=== PATIENT | male | born 1955 | race Caucasian/White ===

== ENCOUNTER 2017-04-18 07:44 | Day surgery (SDC) | payer OTHER ==
--- NOTE | 2017-04-08 10:00 | HP ---
PREOPERATIVE HISTORY AND PHYSICAL: DATE OF SURGERY: 04/18/17 [facility] DATE OF OFFICE VISIT: 04/07/17 ATTENDING SURGEON: Krys Bowden MD * (dictated by JESÚS Georges) PROCEDURE: Right knee arthroscopic partial meniscectomy. CHIEF COMPLAINT: Right knee pain. HISTORY OF PRESENT ILLNESS: Mr. Sunshine is a 61-year-old male who presents to the clinic for followup of right knee pain due to a work-related injury that caused posterior medical meniscus tear. He has failed conservative measures to include injections, and has therefore agreed to undergo a right knee arthroscopic partial meniscectomy with Dr. Bowden on 04/18/17. PAST MEDICAL HISTORY: Denies current problems. PAST SURGICAL HISTORY: Appendectomy in 1984. MEDICATIONS: No active medications. ALLERGIES: No known drug allergies. FAMILY HISTORY: Positive for heart disease on his father's side, cancer on his father's side. Denies family history of DVT or PE. SOCIAL HISTORY: Lives with his spouse. 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 He is a former smoker; he quit suk-azz-p-half years ago. He reports occasional alcohol consumption. He denies illicit drug use. He is right-hand dominant. REVIEW OF SYSTEMS: General: Negative for fever, chills, or night sweats. No known anesthesia problems. HEENT: Negative for headache, lightheadedness, or syncopal episodes. Integumentary: Negative for abrasions, lesions, or open wounds. Cardiothoracic: Negative for chest pain, palpitations or edema. Negative for hypertension. Pulmonary: Negative for shortness of breath with exertion, chronic cough, or COPD. GI: Negative for nausea, vomiting, diarrhea , constipation, or GERD. : Negative for nocturia, urinary urgency, history of UTIs or kidney problems. Musculoskeletal: Positive for the current complaint. Neuro: Positive for numbness and tingling of the right foot. Denies history of seizure, stroke, or epilepsy. Endocrine: Negative for diabetes or thyroid issues. Heme: Negative for easy bruising, anemia, excessive bleeding, history of DVT or PE. Negative for history of bleeding disorder. Infectious Disease: Negative for history of MRSA, hep C, or HIV. PHYSICAL EXAMINATION VITAL SIGNS: Height 70, weight 200, pulse 82, blood pressure 142/90, respiratory rate 14, temperature 97.7, BMI 28.7. HEENT: Normocephalic, atraumatic. PERRLA. Throat: Clear. NECK: Supple. PULMONARY: Lungs are clear to auscultation bilaterally. No wheezing, rhonchi, or rales. CARDIO: Regular rate and rhythm. S1, S2. No murmurs, gallops or rubs. No edema. ABDOMEN: Positive bowel sounds, soft, and nontender. NEURO: Alert and oriented x3. Cranial nerves grossly intact. Sensation is intact to light touch. MUSCULOSKELETAL: Right lower extremity - skin is intact. No erythema. Mild effusion. Range of motion 0 to 120. Tenderness to palpation over the medial joint line. Stable to varus and valgus stress. 2A James. Negative posterior drawer. Calf soft and nontender. +2 dorsalis pedis pulses. Sensation intact to light touch distally. DIAGNOSTIC STUDIES: MRI of the right knee reveals posterior medial meniscus tear and partial ACL tear. IMPRESSION: Right knee posterior medial meniscus tear. PLAN/RECOMMENDATIONS: The patient is scheduled to undergo a right knee arthroscopy, partial meniscectomy with Dr. Bowden on 04/18/17. He will return to the office in 10 to 14 days postop for followup and suture removal. Percocet will be used for postop pain management. JESÚS GEORGES [id number]/[facility] [place] #: [id number] MTDD
[~2017-04-18 07:44] MED LIST: Buffered Lidocaine 0.9% SYRIN* 5 ML/SYR SYRINGE INTRADERM ONE; Dexamethasone IV* 4 MG/ML 1 ML (4 MG) IV SLOW PU ONE; Famotidine IV* 10 MG/ML 2 ML (20 mg) IV ONE
[2017-04-18] MEDS ORDERED: Dexamethasone IV* 4 MG/ML 1 ML (4 MG) ONE (07:47)
[2017-04-18] MEDS ORDERED: Famotidine IV* 10 MG/ML 2 ML (20 mg) ONE (07:47)
[2017-04-18] MEDS ORDERED: ceFAZolin 2 GM PREMIX (*) 50 ML IVPB ONE (08:06)
[2017-04-18] MEDS ORDERED: Lidocaine 2% PF * 5 ML VIAL ONE (09:27)
[2017-04-18] MEDS ORDERED: fentaNYL* 50 MCG/ML 2 ML VIAL (100 MCG VIAL) ONE ×3 (09:27→10:57)
[2017-04-18] MEDS ORDERED: Propofol* 10 MG/ML 20 ML BTL IV PUSH ONE (09:27)
[2017-04-18] MEDS ORDERED: Bupivacaine 0.25% SDV* 30 ML ONE (09:34)
[2017-04-18] MEDS ORDERED: Ketorolac INJ* 30 MG/ML 1 ML VIAL ONE (09:53)
[2017-04-18] MEDS ORDERED: PROCHLORPERAZINE INJ 5 MG/ML 2 ML VIAL IV PRN (10:05)
[2017-04-18] MEDS ORDERED: oxyCODONE/Acetamin 5/325 MG* TAB PO PRN (10:05)
[2017-04-18] MEDS ORDERED: Ondansetron INJ* 2 MG/ML VIAL ONE (10:24)
[2017-04-18] MEDS ORDERED: methylPREDNISolone ACETATE 80* 80 MG/ML 1 ML VIAL ONE (10:26)
[2017-04-18] MEDS: fentaNYL* 50 MCG/ML 2 ML VIAL (100 MCG VIAL) IV PRN ×2 (11:00→11:09)
[2017-04-18] MEDS ORDERED: oxyCODONE/Acetamin 5/325 MG* TAB ONE (11:16)
[2017-04-18 11:49] VITALS: BP 151/94
--- NOTE | 2017-04-23 12:16 | OP ---
DATE OF OPERATION: 04/18/17 [facility] DATE OF : 57 SURGEON: Krys Bowden MD ANESTHESIOLOGIST: Dr. Bertram Best. ANESTHESIA: General. PRE-OP DIAGNOSIS: Right knee medial meniscus tear with mild osteoarthritis. POST-OP DIAGNOSIS: Mild osteoarthritis, multiple loose bodies, medial and lateral meniscal tears as well as loose bodies numerous. OPERATIVE PROCEDURE: Right knee arthroscopy with: 1. Removal of loose bodies numerous. Partial medial meniscectomy. 2. Partial lateral meniscectomy. 3. Chondroplasty. 4. Intraarticular injection of 80 mg of Depo-Medrol. COMPLICATIONS: None. ESTIMATED BLOOD LOSS: Minimal. IMPLANTS: None. INDICATIONS: Ludwig Sunshine is a 61-year-old male who sustained a work-related injury in 2016. We have been treating him conservatively with injections, physical therapy. He also has a known partial tear of his ACL, but he had persistent medial catching and locking symptoms that have not resolved. Because of the mechanical symptoms, we elected to proceed with right knee arthroscopy with partial meniscectomy. He is aware that if he has some arthritis that this will not respond favorably to arthroscopy. Risks and benefits were discussed at length with the patient and include but are not limited to bleeding, infection, damage to nerves, vessels, surrounding structures, wound nonhealing, persistent pain, need for further surgeries, scarring, stiffness, incomplete relief of symptoms, risk of anesthesia, risk of DVT. He elected to proceed with surgery. DESCRIPTION OF PROCEDURE: The patient was greeted in the preoperative area by the attending surgeon. Correct extremity was marked and consent was confirmed. The patient was brought back to the operating suite and was placed in supine position on the operating table. He underwent general anesthesia with LMA intubation. An unsterile tourniquet was placed high in the proximal thigh. The lateral post was positioned. The leg was prepped and draped in the usual sterile fashion beginning with chlorhexidine soap, scrub, and alcohol wipe and a final prep of ChloraPrep. After appropriate surgical pause indicating side, site, procedure, and administration of antibiotics, an 18-gauge needle was used to inject the knee intra- articularly with sterile saline. An anterolateral portal was made using 11 blade. The scope was introduced into the joint. The joint was examined. The scope was placed into the suprapatellar pouch. There were multiple loose bodies and debris that was floating. There was grade 0 to 1 changes in the patella and grade 0 to 1 changes in the trochlea. The medial and lateral gutters both had erythema as well as multiple loose bodies. The knee was placed at 90 degrees. The anteromedial portal was made sharply in an outside- in fashion. The shaver was used to remove the loose bodies and loose tissue. The scope was positioned in the medial compartment. There was a small area of chondrosis with grade 1 and 2 changes of unstable flap, which was debrided back. Medial meniscus identified and had a parrot beak type tear with the head clipped into the gutter. This was then debrided back using arthroscopic biters and eryn. Once the meniscectomy had been completed, attention was directed to the ACL, which had partial thickness tearing. The knee was placed in figure- of-four position. The lateral compartment was identified. There were grade 0 to 1 changes of the femoral condyle and lateral tibial plateau. There was fraying of the lateral meniscus, which was debrided back using the shaver. At this point, attention was directed to suprapatellar pouch to try to make sure that any debris and loose bodies were removed. At least two of the loose bodies were greater than 5 mm. Once the surgery was complete, the knee was sterilely lavaged and every attempt was made to try to remove any loose bodies and debris. Small synovectomy was done anteriorly to remove plica and hemostasis was obtained at all times using electrocautery device. The portals were closed with 3- 0 nylon. The knee was intra-articularly injected with 0.25 % Marcaine. Sterile dressings were applied as well as Cryo/Cuff. He was awoken from anesthesia and transferred to the PACU in stable condition. POSTOPERATIVE PLAN: He will be weightbearing as tolerated. He will be allowed to work with range of motion. He will be discharged with crutches. DVT prophylaxis considered but deferred due to no previous personal or family history. He will be discharged on pain medications. I will see the patient back in 10 to 14 days. [id number]/[facility] #: [id number] HIEU
== END 2017-04-18 11:50 | disposition home or self-care (01) ==
LOC: OREAST 07:44
PROVIDERS: ATTEND Orthopaedic Surgery
DX: S83.241A Other tear of medial meniscus, current injury, right knee, initial encounter (principal); S83.281A Other tear of lateral meniscus, current injury, right knee, initial encounter; M23.41 Loose body in knee, right knee; X58.XXXA Exposure to other specified factors, initial encounter; Y92.89 Other specified places as the place of occurrence of the external cause; Y99.0 Civilian activity done for income or pay
CPT/HCPCS: A9270-GY; J0690; J1040; J1100; J1885; J2405; J2704; J3010

== ENCOUNTER 2017-09-29 08:24 | Inpatient (IN) | payer OTHER ==
--- NOTE | 2017-09-13 10:16 | HP ---
AMENDED REPORT NOW INCLUDES COSIGNER DESIGNATION - ESIGNED BEFORE ADJUSTMENT HISTORY AND PHYSICAL: DATE OF ADMISSION/SURGERY: 09/29/17 SURGEON: Ruby Salamanca MD * (DICTATED BY JESÚS MARTINEZ) PROCEDURE: Right total knee arthroplasty. CHIEF COMPLAINT: Right knee pain. HISTORY OF PRESENT ILLNESS: Ms. Sunshine is a 62-year-old gentleman with continued complaints of right knee pain. He underwent a right knee arthroscopy, and continues to have pain. X-rays show advanced osteoarthritis, and he has elected to proceed with a right total knee arthroplasty which is scheduled for 09/29/[address] Salamanca. PAST MEDICAL HISTORY: Hypertension and acid reflux. PAST SURGICAL HISTORY: Appendectomy, tonsillectomy. CURRENT MEDICATIONS: 1. Lisinopril 20 mg daily. 2. [place]imar as needed. 3. Advil as needed. 4. Vitamin C daily. ALLERGIES: None. FAMILY HISTORY: Cancer. SOCIAL HISTORY: This is a 62-year-old gentleman who lives with his . He quit smoking 2 years ago. He does not use drugs. He uses occasional alcohol. REVIEW OF SYSTEMS: A complete 14-point review of systems was reviewed with the patient. It is positive for GERD. He denies any history of DVT, PE, hepatitis C, HIV, or anesthesia problems. PHYSICAL EXAMINATION GENERAL: He is well developed, well nourished, in no acute distress. VITAL SIGNS: He stands 6 feet 1 inch tall, weighs 205 pounds. Blood pressure 142/90, heart rate is 62. HEENT: Normocephalic, atraumatic. NECK: Supple. No palpable lymph nodes. PULMONARY: Lungs are clear to auscultation bilaterally. CARDIO: Regular rate and rhythm. Strong S1, S2. ABDOMEN: Soft, nontender, nondistended. NEUROLOGICAL: She is alert and oriented x3. Cranial nerves II through XII are intact. MUSCULOSKELETAL: Right lower extremity, the skin is intact. There are no open wounds or abrasions. There are 2 well-healed scars on the anterior aspect of knee. There is a mild effusion. He has some tenderness over the medial and lateral joint line. Decreased range of motion with patellofemoral crepitus. He is distally neurovascularly intact. ASSESSMENT AND PLAN: Mr. Sunshine is a 62-year-old gentleman with continued complaints of right knee pain. He has failed conservative management and elected to proceed with a right total knee arthroplasty which is scheduled for 09/29/[address] Salamanca discussed the risks and benefits of the surgery at today's visit and all of his questions were answered. He will follow up with Dr. Salamanca 2 weeks after the surgery. JESÚS MARTINEZ [id number]/[facility] #: [id number] HIEU
[~2017-09-29 08:24] MED LIST changes: +Acetaminophen IV 1GM/100ML * 1,000 MG/100 ML VIAL IVPB ONE; +Gabapentin CAP(*) 300 MG PO ONE
[2017-09-29] MEDS ORDERED: ceFAZolin 2 GM PREMIX (*) 2 GM/50 ML BAG IVPB ONE (08:30)
[2017-09-29] MEDS ORDERED: Gabapentin CAP(*) 300 MG ONE (08:30)
[2017-09-29] MEDS ORDERED: Famotidine IV* 10 MG/ML 2 ML (20 mg) ONE (08:30)
[2017-09-29] MEDS ORDERED: Dexamethasone IV* 4 MG/ML 1 ML (4 MG) ONE (08:30)
[2017-09-29] MEDS ORDERED: Acetaminophen IV 1GM/100ML * 100 ML ONE (08:32)
--- OUTSIDE RECORDS SUMMARY | 2017-09-29 08:34 | XMS REPORT ---
:1955 External Reference #:[id number] Author Organization [facility] Address [address] [place] [address] Phone [phone] Care Team Providers Name Role Phone Viridiana Carpio M.D. 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 Primary Care Physician Unavailable Payers Type Date Identification Numbers Payment Subscriber Provider Health Maintenance Effective: Policy Number: [place] Betty Gonzalez Jong Organization ([facility]) 02/02/2017 [id number] LAITH-Jamin Group Number: [id number] [address] PayID: [id number] [place] [place] [id number] Health Maintenance Effective: Policy Number: [place] OZUNA-Aekayla Shelby Cervantes Organization ([facility]) 08/22/2013 [id number] Expires: 02/02/2017 Group Number: [id number] [id number] PayID: [id number] [place] [id number] Problems Description No Information Family History Date Family Member(s) Problem(s) Comments Father No Current Problems Mother No Current Problems First Daughter Breast Cancer Social History Type Date Description Comments Marital Status Legal Status: Lives With Spouse Diet Healthy, Well Balanced Occupation [employer] ETOH Use Occasional 6-12 beers on weekends Smoking Patient is a former smoker 35 years 1.5 years Exercise Type/Frequency Exercises sporadically active at work Allergies, Adverse Reactions, Alerts Date Description Reaction Status Severity Comments 01/28/2014 NKDA active Medications Medication Date Status Form Strength Qnty SIG Indications Ordering Provider Azithromycin 09/13 Active Tablets 250mg 6tabs 2 tabs today, R05 then 1 tab [place], daily for next M.D. 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 12/14 Work Note 06/12 Hx please excuse A09 Romulo06/11-06/13/15 Toi - M.DLeela 12/14 Naproxen 01/23 Hx Tablets 500mg 30tab 1 by mouth 719.46 Romulo s twice a day Toi - M.D. 12/14 Cyclobenzaprine 01/23 Hx Tablets 10mg 30tab 1 by mouth 719.46 Romulo s three times a Cm, - day as needed M.D. 12/14 Work Excuse 01/23 Hx please excuse 719.46 Romulo /201401/23/15-01/25/15 Toi - M.D. 06/12 Note For Travel 02/15 Hx I have 607.84 Romulo prescribed the Toi - pt Viagra for M.D. 06/12 dysfunction. Ok for him to carry for international travel No Active 01/28 Hx Unknown Medications /2013 - 01/28 Viagra 01/28 Hx Tablets 100mg 8tabs 1 by mouth 607.84 Romulo every day as Toi, - needed as M.D. 12/14 Hydrocodone-Acet Hx Tablets 5-325mg 1 by mouth Unknown aminophen /0000 four times a - day as needed 09/13 Immunizations CPT Code Status Date Vaccine Lot # [id number] Given 04/11/2017 Zostivax [id number] Given 12/15/2016 Tdap Tetanus, W Pertussis [id number] Vital Signs Date Vital Result Comment 09/13/2017 BP Systolic 134 mmHg BP Diastolic 80 mmHg Heart Rate 76 /min Body Temperature 98.8 F Respiratory Rate 16 /min Height 70 inches 5'10" Weight 204.00 lb BMI (Body Mass Index) 29.3 kg/m2 08/11/2017 BP Systolic 140 mmHg BP Diastolic 80 mmHg Heart Rate 68 /min Body Temperature 98.2 F Respiratory Rate 16 /min Height 70 inches 5'10" Weight 206.25 lb BMI (Body Mass Index) 29.6 kg/m2 07/27/2017 BP Systolic 165 mmHg BP Diastolic 102 mmHg Heart Rate 80 /min Body Temperature 99.1 F Height 70 inches 5'10" Weight 206.25 lb BMI (Body Mass Index) 29.6 kg/m2 12/15/2016 BP Systolic 162 mmHg BP Diastolic 84 mmHg Heart Rate 78 /min Body Temperature 98.6 F Height 70 inches 5'10" Weight 194.25 lb BMI (Body Mass Index) 27.9 kg/m2 Right Visual Acuity Distance 20/40 uncorrected Left Visual Acuity Distance 20/50 both 20/30 06/12/2015 BP Systolic 120 mmHg BP Diastolic 70 mmHg Heart Rate 80 /min Body Temperature 98.2 F Respiratory Rate 18 /min Height 70 inches 5'10" Weight 173.00 lb BMI (Body Mass Index) 24.8 kg/m2 01/23/2015 BP Systolic 130 mmHg BP Diastolic 90 mmHg Heart Rate 80 /min Body Temperature 98.8 F Respiratory Rate 16 /min Height 70 inches 5'10" Weight 185.00 lb BMI (Body Mass Index) 26.5 kg/m2 02/15/2014 BP Systolic 138 mmHg BP Diastolic 80 mmHg Heart Rate 72 /min Body Temperature 97.2 F Respiratory Rate 16 /min Height 70 inches 5'10" Weight 170.00 lb BMI (Body Mass Index) 24.4 kg/m2 01/28/2014 BP Systolic 150 mmHg BP Diastolic 96 mmHg Heart Rate 78 /min Body Temperature 98.2 F Respiratory Rate 15 /min Height 70 inches 5'10" Weight 169.00 lb BMI (Body Mass Index) 24.2 kg/m2 Results Test Date Test Result H/L Range Note Laboratory test finding 03/28/2017 Surgical Interface SEE RESULT 1 Order BELOW Comprehensive Metabolic 12/06/2016 Sodium 142 mEq/L 134-149 Prof Potassium 4.9 mEq/L 3.6-5.5 Chloride 107 mEq/L 94-112 Carbon Dioxide 24 mEq/L 21-32 Glucose 105 mg/dL 70-105 BUN 12 mg/dL 6-26 Creatinine 0.7 mg/dL 0.6-1.4 BUN/Creat Ratio 17.1 CALC 8.0-36.0 Calcium 9.0 mg/dL 8.6-10.2 Total Protein 6.9 g/dL 6.4-8.3 Albumin 4.1 g/dL 3.8-5.5 Globulin 2.8 g/dL 2.0-4.8 A/G Ratio 1.5 CALC 0.6-2.3 Alk. Phosphatase 102 U/L High 22-95 2 Alt (SGPT) 27 U/L 7-35 Ast (Sgot) 16 U/L 5-34 Total Bilirubin 0.5 mg/dL 0.2-1.3 GFR Non- >60 ml/min/1.73m^ >=60 GFR >60 ml/min/1.73m^ >=60 Lipid Profile 12/06/2016 Cholesterol 249 mg/dL High 120-200 Triglycerides 71 mg/dL 30-200 HDL Cholesterol 70 mg/dL 30-70 LDL (Calculated) 165 CALC High 0-129 VLDL Cholesterol 14 mg/dL 0-50 HDL Risk Factor 3.6 CALC 0.0-4.4 Complete Blood Count 12/06/2016 WBC 7.6 x10^3/UL 3.6-9.6 RBC 4.73 x10^6/UL 3.90-5.70 HGB 15.8 g/dL 12.1-17.2 HCT 47 % 36-50 MCV 98.0 fL High 82.2-97.4 3 MCH 33.4 pg High 27.6-33.3 4 MCHC 33.9 g/dL 33.0-35.5 RDW 14.6 % High 11.6-13.7 PLT 300 x10^3/UL 150-400 MPV 6.7 fL Low 7.4-10.4 Gran # 4.2 x10^3/UL 1.5-7.2 Lymph# 3.0 x10^3/UL 0.7-4.9 [place]# 0.4 x10^3/UL 0.1-0.9 Gran % 54.3 % 42.2-75.2 Lymph % 40.1 % 20.5-51.1 [place]% 5.6 % 1.7-9.3 Laboratory test finding 12/06/2016 PSA 0.6 ng/mL 0.0-4.0 Complete Blood Count 02/04/2014 WBC 9.8 x10^3/UL High 3.6-9.6 RBC 4.91 x10^6/UL 3.90-5.70 HGB 16.9 g/dL 12.1-17.2 HCT 49 % 36-50 MCV 99.0 fL High 82.2-97.4 MCH 34.3 pg High 27.6-33.3 MCHC 34.6 g/dL 33.0-35.5 RDW 11.9 % 11.6-13.7 PLT 267 x10^3/UL 150-400 MPV 7.2 fL Low 7.4-10.4 Gran # 5.7 x10^3/UL 1.5-7.2 Lymph# 3.7 x10^3/UL 0.7-4.9 [place]# 0.4 x10^3/UL 0.1-0.9 Gran % 57.6 % 42.2-75.2 Lymph % 37.7 % 20.5-51.1 [place]% 4.7 % 1.7-9.3 Comprehensive Metabolic Prof 02/04/2014 Sodium 137 mEq/L 134-149 Potassium 4.7 mEq/L 3.6-5.5 Chloride 106 mEq/L 94-112 Carbon Dioxide 25 mEq/L 21-32 Glucose 120 mg/dL High 70-105 BUN 11 mg/dL 6-26 Creatinine 0.9 mg/dL 0.6-1.4 BUN/Creat Ratio 12.2 CALC 8.0-36.0 Calcium 10.2 mg/dL 8.6-10.2 Total Protein 7.9 g/dL 6.3-8.1 Albumin 4.8 g/dL 3.8-5.5 Globulin 3.1 g/dL 2.0-4.8 A/G Ratio 1.5 CALC 0.6-2.3 Alk. Phosphatase 139 U/L High 22-95 Alt (SGPT) 16 U/L 7-35 Ast (Sgot) 15 U/L 5-34 Total Bilirubin 0.3 mg/dL 0.2-1.3 Lipid Profile 02/04/2014 Cholesterol 221 mg/dL High 120-200 Triglycerides 69 mg/dL 30-200 HDL Cholesterol 56 mg/dL 30-70 LDL (Calculated) 151 CALC High 0-129 VLDL Cholesterol 14 mg/dL 0-50 HDL Risk Factor 3.9 CALC 0.0-4.4 Laboratory test finding 02/04/2014 TSH 1.41 mIU/L 0.50-6.00 5 Testosterone 578.9 ng/dL 262.0-870.0 1 SEE RESULT BELOW Name: SHELBY CERVANTES : [address]: Juma Cruz MD Acct: [id number] Unit: [id number] AGE: 61 Location: ENDO Re03/28/17 SEX: M Status: DEP REF SPEC: [id number] LES: 03/28/17 [facility] DR: Juma Cruz MD REQ: [id number] RECD: 03/28/17 STATUS: DESIREE ELIAS DR: Viridiana Carpio MD _ ORDERED: LEVEL 4/4 THIS IS A CORRECTED REPORT 03/29/17-2 Corrected Report FINAL DIAGNOSIS 1. Colon, cecum, biopsy: -- Tubular adenoma. -- No high grade dysplasia or malignancy. 2. Colon, mid transverse, biopsy: -- Tubular adenoma. -- No high grade dysplasia or malignancy. 3. Colon, at 40 cm, biopsy: -- Hyperplastic polyp. 4. Colon, at 10 cm, biopsy: -- Hyperplastic polyps. The corrected report is generated only to reflect the addition of endoscopist's findings. The diagnosis remains unchanged. CLINICAL HISTORY No history given POST-OPERATIVE DIAGNOSIS Snare biopsy x2 at 10 cm; snare x2 at 40 cm, biopsy x1 at cecum, min transverse snare, tics; 5 years CONTINUED ON NEXT PAGE * ML=Testing performed at Main Lab DEPARTMENT OF PATHOLOGY, [address] [place] [address] Pk Cedeno M.D. Director [place] # [id number] RUN DATE: 03/29/17 [facility] LAB LIVE PAGE 2 Patient: SHELBY CERVANTES [id number] (Continued) GROSS DESCRIPTION (Continued) GROSS DESCRIPTION 1. The specimen is received in formalin labeled, Cecal Polyp, and consists of a 0.6 x 0.4 x 0.1 cm aggregate of gomes-pink irregular to polypoid soft tissue fragments, which are entirely submitted in one cassette. 2. The specimen is received in formalin labeled, Mid Transverse Colon Polyp , and consists of a 0.5 x 0.4 x 0.1 cm gomes-white irregular to polypoid soft tissue fragment , which is entirely submitted in one cassette. 3. The specimen is received in formalin labeled, Polyps at 40 cm, and consists of two gomes-pink irregular to polypoid soft tissue fragments measuring 0.3 x 0.1 x 0.1 cm and 0.4 x 0.3 x 0.2 cm, which are entirely submitted in one cassette. 4. The specimen is received in formalin labeled, Polyps at 10 cm, consists of a 0.6 by up to 0.6 x 0.2 cm aggregate of speckled gomes-pink irregular to polypoid soft tissue fragments, which is entirely submitted in one cassette. Signed (signature on file) Betty Jansen MD 04/07 1052 END OF REPORT * ML=Testing performed at Main Lab DEPARTMENT OF PATHOLOGY, [address] [place] [address] Pk Cedeno M.D. Director [facility] # [id number] 2 consistent w/ previous results 3 consistent w/ previous results 4 consistent w/ previous results 5 FASTING Procedures Date CPT Code Description Status 03/28/2017 Colonoscopy Completed 12/15/2016 32351 CPHL SHQ Completed 12/15/2016 64153 Vision Test- screening test of visual acuity, Completed quantitative, bila Encounters Type Date Location Provider CPT E/M Dx Office Visit 08/11/2017 9:30a [place] [address] I10 B35.6 Office Visit 08/04/2017 9:30a Main Office Viridiana Carpio M.D. 95359 I10 Office Visit 07/27/2017 10:45a [place] [address] I10 H53.9 L20.9 Office Visit 06/12/2015 11:20a Main Office Romulo Cm M.D. 63295 A09 Office Visit 01/23/2015 11:40a Main Office Romulo Cm M.D. 63400 719.46 Office Visit 02/15/2014 10:20a [facility] Office Romulo Cm M.D. 36576 607.84 272.4 790.21 Office Visit 01/28/2014 10:00a Main Office Romulo Cm M.D. 20147 607.84 Plan of Care Future Appointment(s):11/10/2017 8:00 am - Lesley Bautista NP at Main Pdyuwe1909/13/2017 - Viridiana Carpio M.D.Z01.818 Encounter for other preprocedural examinationComments:Cleared for surgery. Will fax note to ordering physician.M17.31 Unilateral post-traumatic osteoarthritis, right kneeComments: hold ibuprofen 1 week prior to [id number] Essential (primary) hypertensionComments:The patient will continue to monitor blood pressure and let me know the blood pressure results if there are readings persistently above 140/80. Goal blood pressure is less than 140/80. Recommend low salt/cardiac diet and routine exercise.R05 CoughNew Medication:Azithromycin 250 mgComments: Supportive care discussed. Use saline rinse/martina pot twice a day for congestion. Can use mucinex 1 tab twice a day or 1 tab of Claritin or zyrtec at bedtime for congestion. Call if symptoms aren't improved or if they are worsening in the next few days.AllComments:~B_~U_Medication Management~b_~u_ Patient Understands medications he's taking? Yes No Are there Barriers to Adherence? Yes No Has the patient been asked about herbal supplements and therapies, and OTC meds? Yes No
--- OUTSIDE RECORDS SUMMARY | 2017-09-29 08:34 | XMS REPORT ---
:1955 External Reference #:[id number] Author Organization [facility] Address [address] [address] Phone [phone] Care Team Providers Name Role Phone Viridiana Carpio MD Primary Care Physician Unavailable Payers Type Date Identification Numbers Payment Provider Subscriber Workers Compensation Onset: Policy Number: [id number] State Insurance Ludwig Sunshine 2011 Fund Group Number: [id number] [address] [address] PayID: [place] [address] Workers Effective: Policy Number: Kaushik Sunshine Compensation 2016 [id number] [place] Onset: 2016 Group Name: [id number] [phone] PayID: DANIELITORonald SASHA Garcia [id number] Problems Date Description Provider Status Onset: 08/06/2016 Knee joint effusion Krys Bowden MD Active Onset: 08/20/2016 Loose body in knee Krys Bowden MD Active Onset: 08/20/2016 Sprain of anterior cruciate ligament of Krys Bowden MD Active right knee, subs Onset: 11/16/2016 Sprain of cruciate ligament of knee Krys Bowden MD Active Onset: 11/16/2016 Current tear of medial cartilage AND/OR Krys Bowedn MD Active meniscus of knee Onset: 08/26/2017 Localized, secondary osteoarthritis Ruby Salamanca M.D. Active Onset: 08/11/2017 Osteochondritis dissecans Krys Bowden MD Active Family History Date Family Member(s) Problem(s) Comments General Cancer Social History Type Date Description Comments Lives With Spouse Occupation [employer] Use Currently consumes alcohol Smoking Patient is a former smoker Exercise Type/Frequency Does not exercise Allergies, Adverse Reactions, Alerts Date Description Reaction Status Severity Comments 10/14/2011 NKDA active Medications Medication Date Status Form Strength Qnty SIG Indications Ordering Provider aHrlan 07/28/2017 Active Misc 1units disp 1 four M23.41 murray Dyer MD M25.461 [place] 06/30/2017 Active Tablets 5-325mg 30tabs take 1 S83.511D Krys tab every Yaseen, 12 hours MD as needed for pain Vitamin C Plus 04/29/2017 Active Tablets 1000mg 60tabs take 1 by M25.461 Krys mouth Dennise, daily MD Advil Active Tablets 200mg as needed Unknown Lisinopril Active Tablets 20mg 1 by Unknown mouth every day Quinn[place]ec 04/29/2017 - Hx Tablets 5-325mg 60tabs 1-2 tab M25.461 Krys 06/30/2017 by mouth Dennise, every 6 MD hours as needed pain Oxycodone HCL 04/07/2017 - Hx Capsules 5mg 20caps 1 tabs by Zamaryb 05/31/2017 mouth Mallikaselyn, every 12 MD hours as needed pain Percocet 04/07/2017 - Hx Tablets 5-325mg 60tabs 1-2 tabs Zaneb 05/22/2017 by mouth Mallikaselyn, every 4-6 MD hours as needed pain for post op pain. Do not fill until 04/17/17 No Active 10/14/2016 - Hx Unknown Medications 04/07/2017 No Active 08/06/2016 - Hx Unknown Medications 08/06/2016 Percocet 08/06/2016 - Hx Tablets 5-325mg 40tabs take 1 M25.461 Krys 09/23/2016 tabs as Yaseen, needed MD for pain every 8 hours. do not combine with tylenol Naprosyn 01/06/2012 - Hx Tablets 500mg 60tabs twice 724.2 Leonel 07/29/2016 daily Veigel, with food M.D. prn Amitriptyline 01/06/2012 - Hx Tablets 25mg 90tabs 1-3 724.2 Leonel HCL 08/05/2016 tablets Veigel, po qhs M.DLeela Medrol Dosepak 10/14/2011 - Hx Tablets 4mg 1pack use as 724.2 Leonel 10/21/2011 directed [place] Mast Tizanidine HCL - Hx Tablets 2mg 20tabs 1 po bid Unknown 12/16/2011 prn spasms Motrin - Hx Tablets 600mg 90tabs take 1 po Unknown 08/05/2016 tid with meals Tylenol - Hx Tablets 325mg prn Unknown 07/28/2016 Diclofenac - Hx Tablets DR 50mg 60tabs 1 tab by Unknown Sodium DR 12/16/2011 mouth twice a day Medications Administered in Office Medication Date Status Form Strength Qnty SIG Indications Ordering Provider Triamcinolone 06/30/ Administered Injection Zaneb (Kenalog) 2016 MD Dennise Triamcinolone 12/14/ Administered Injection Zaneb (Kenalog) 2016 MD Dennise Triamcinolone 09/07/ Administered Injection Zaneb (Kenalog) 2016 MD Dennise Vital Signs Date Vital Result Comment 09/12/2017 Height 71 inches 5'11" Weight 206.00 lb Heart Rate 62 /min BP Systolic 142 mmHg BP Diastolic 90 mmHg Respiratory Rate 15 /min Pain Level 5 BMI (Body Mass Index) 28.7 kg/m2 08/26/2017 Height 71 inches 5'11" Weight 206.00 lb BP Systolic 140 mmHg BP Diastolic 86 mmHg Body Temperature 97.6 F Pain Level 5 BMI (Body Mass Index) 28.7 kg/m2 08/11/2017 Height 70 inches 5'10" Weight 205.00 lb BP Systolic 122 mmHg BP Diastolic 72 mmHg Respiratory Rate 18 /min Pain Level 3 BMI (Body Mass Index) 29.4 kg/m2 07/28/2017 Height 70 inches 5'10" Weight 205.00 lb per pt Heart Rate 76 /min reg BP Systolic Sitting 150 mmHg Rue, lg cuff BP Diastolic Sitting 90 mmHg Rue, lg cuff Respiratory Rate 16 /min Body Temperature 98.1 F tympanic Pain Level 4 right knee BMI (Body Mass Index) 29.4 kg/m2 06/30/2017 Height 70 inches 5'10" Weight 200.00 lb BP Systolic 124 mmHg BP Diastolic 82 mmHg Respiratory Rate 18 /min Pain Level 6 BMI (Body Mass Index) 28.7 kg/m2 05/31/2017 Height 70 inches 5'10" Weight 200.00 lb BP Systolic 123 mmHg BP Diastolic 84 mmHg Body Temperature 98.3 F Pain Level 4 BMI (Body Mass Index) 28.7 kg/m2 04/29/2017 Height 70 inches 5'10" Weight 200.00 lb Heart Rate 74 /min Respiratory Rate 15 /min Body Temperature 97.6 F Pain Level 6 BMI (Body Mass Index) 28.7 kg/m2 04/07/2017 Height 70 inches 5'10" Weight 200.00 lb Heart Rate 82 /min BP Systolic Sitting 142 mmHg BP Diastolic Sitting 90 mmHg Respiratory Rate 14 /min Body Temperature 97.7 F Pain Level 5 BMI (Body Mass Index) 28.7 kg/m2 02/11/2017 Height 70 inches 5'10" Weight 200.00 lb Respiratory Rate 14 /min Body Temperature 98.3 F Pain Level 4 BMI (Body Mass Index) 28.7 kg/m2 12/14/2016 Height 70 inches 5'10" Weight 200.00 lb Heart Rate 88 /min BP Systolic 126 mmHg BP Diastolic 82 mmHg Respiratory Rate 16 /min Pain Level 3 BMI (Body Mass Index) 28.7 kg/m2 11/16/2016 Height 70 inches 5'10" Weight 200.00 lb Heart Rate 76 /min BP Systolic Sitting 142 mmHg BP Diastolic Sitting 72 mmHg Respiratory Rate 18 /min Pain Level 4 BMI (Body Mass Index) 28.7 kg/m2 10/14/2016 Height 70 inches 5'10" Weight 200.00 lb Heart Rate 80 /min BP Systolic 140 mmHg BP Diastolic 100 mmHg Respiratory Rate 24 /min Pain Level 0 BMI (Body Mass Index) 28.7 kg/m2 08/20/2016 Height 70 inches 5'10" Weight 200.00 lb Respiratory Rate 18 /min Pain Level 7 BMI (Body Mass Index) 28.7 kg/m2 08/06/2016 Height 70 inches 5'10" Weight 200.00 lb Respiratory Rate 16 /min Pain Level 8 BMI (Body Mass Index) 28.7 kg/m2 10/14/2011 Heart Rate 88 /min BP Systolic Sitting 140 mmHg BP Diastolic Sitting 90 mmHg Results Test Date Test Result H/L Range Note CBC Auto Diff 08/29/2017 White Blood Count 9.2 10^3/uL 3.5-10.8 Red Blood Count 4.65 10^6/uL 4.0-5.4 Hemoglobin 15.8 g/dL 14.0-18.0 Hematocrit 46 % 42-52 Mean Corpuscular Volume 99 fL High 80-94 Mean Corpuscular Hemoglobin 34 pg High 27-31 Mean Corpuscular HGB Conc 34 g/dL 31-36 Red Cell Distribution Width 13 % 10.5-15 Platelet Count 236 10^3/uL 150-450 Mean Platelet Volume 9 um3 7.4-10.4 Abs Neutrophils 4.2 10^3/uL 1.5-7.7 Abs Lymphocytes 4.0 10^3/uL 1.0-4.8 Abs Monocytes 0.9 10^3/uL High 0-0.8 Abs Eosinophils 0.1 10^3/uL 0-0.6 Abs Basophils 0 10^3/uL 0-0.2 Abs Nucleated RBC 0 10^3/uL Granulocyte % 45.4 % 38-83 Lymphocyte % 43.5 % 25-47 Monocyte % 9.7 % High 1-9 Eosinophil % 1.0 % 0-6 Basophil % 0.4 % 0-2 Nucleated Red Blood Cells % 0.1 Laboratory test finding 08/29/2017 C Reactive Protein 9.46 mg/L High < 5.00 1 Erythrocyte Sed Rate 16 mm/Hr 0-20 1 Acute inflammation: >10.00 Procedures Date CPT Code Description Status 06/30/201709539 Inject/Drain Joint/Bursa Major Completed 04/18/2017 92836 Arthroscopy,Knee,Meniscectomy Media & Lateral Completed 12/14/2016 37478 Inject/Drain Joint/Bursa Major Completed 09/07/2016 25885 Inject/Drain Joint/Bursa Major Completed Encounters Type Date Location Provider CPT E/M Dx Office Visit 08/26/2017 [facility] Ruby Salamanca M.D. 03108 M93.261 9:00a Of [facility] M25.561 M17.31 Office Visit 08/11/2017 11:15a [facility] [place] [address] S83.511D Jessica S83.241D M93.261 S83.511D Office Visit 07/28/2017 8:45a [facility] [place] [address] S83.511D C.M.A. S83.241D S83.511D Office Visit 02/11/2017 8:00a [facility] [place] [address] M25.461 C.M.A. S83.511D S83.241D Office Visit 11/16/2016 8:00a [facility] [place] [address] M25.461 C.M.A. S83.511A S83.241A S83.511D S83.241D Office Visit 10/14/2016 8:15a [facility] [place] [address] M25.461 C.M.A. M23.41 Office Visit 09/07/2016 1:15p [facility] [place] [address] M25.461 C.M.A. M23.41 M23.41 M25.461 Office Visit 08/20/2016 9:45a [facility] [place] [address] M25.461 C.M.A. S83.511A S83.511D S83.511D S83.241A M23.41 Office Visit 08/06/2016 9:15a [facility] [place] [address] M25.461 C.M.A. M25.461 M25.461 M25.461 Office Visit 10/14/2011 3:15p [facility] Leonel Mast M.D. 62420 724.2 [facility] Plan of Care 09/12/2017 - Ruby Salamanca M.D.M25.561 Pain in right kneeM25.461 Effusion, right kneeM17.31 Unilateral post-traumatic osteoarthritis, right kneeFollow up: Follow up: 10-14 days postop
[2017-09-29] MEDS ORDERED: KETAMINE HCL* 50 MG/ML 10 ML VIAL ONE ×2 (09:43→12:22)
[2017-09-29] MEDS ORDERED: Midazolam* 1 MG/ML 10 ML VIAL (10 MG) ONE (09:44)
[2017-09-29] MEDS ORDERED: Ketorolac INJ* 30 MG/ML 1 ML VIAL ONE (09:44)
[2017-09-29] MEDS ORDERED: Propofol* 10 MG/ML 20 ML BTL IV PUSH ONE ×2 (09:44→11:01)
[2017-09-29] MEDS ORDERED: Ondansetron INJ* 2 MG/ML VIAL ONE (09:44)
[2017-09-29] MEDS ORDERED: Atracurium* 10 MG/ML 10 ML VIAL ONE (11:01)
[2017-09-29] MEDS ORDERED: fentaNYL* 50 MCG/ML 5 ML VIAL (250 MCG VIAL) ONE (11:03)
[2017-09-29] MEDS ORDERED: Bupivacaine 0.5% SDV PF* 10-30ML VIAL ONE (12:21)
[2017-09-29] MEDS ORDERED: fentaNYL* 50 MCG/ML 2 ML VIAL (100 MCG VIAL) ONE ×2 (12:27→14:59)
[2017-09-29] MEDS ORDERED: Ondansetron INJ* 2 MG/ML VIAL IV PRN ×2 (12:45→12:56)
[2017-09-29] MEDS ORDERED: Naloxone* 0.4 MG/ML 1 ML VIAL IV PRN (12:45)
[2017-09-29] MEDS ORDERED: DiMENhydriNATE IV* 50 MG/ML VIAL IV PUSH PRN (12:45)
[2017-09-29] MEDS ORDERED: Acetaminophen TAB* 325 MG PO PRN (12:56)
[2017-09-29] MEDS ORDERED: Magnesium Hydroxide LIQ* 30 ML UDC PO PRN (12:56)
[2017-09-29] MEDS ORDERED: Morphine INJ* 2 MG/ML 1 ML CARPUJECT IV PRN (12:56)
[2017-09-29] MEDS ORDERED: Bisacodyl SUPP* 10 MG SUPP PR PRN (12:56)
[2017-09-29] MEDS ORDERED: diPHENhydraMINE IV* 50 MG/ML 1 ml VIAL (BENADRYL) IV PRN (12:56)
[2017-09-29] MEDS ORDERED: oxyCODONE/Acetamin 5/325 MG* TAB PO PRN (12:56)
[2017-09-29] MEDS ORDERED: Ondansetron TAB* 4 MG PO PRN (12:56)
[2017-09-29] MEDS ORDERED: Polyethylene Glycol 3350* 17 GM PACKET PO PRN (12:56)
[2017-09-29] MEDS ORDERED: HYDROmorphone INJ* 2 MG/ML CARPUJECT SYRINGE ONE (14:59)
[2017-09-29] MEDS: fentaNYL* 50 MCG/ML 2 ML VIAL (100 MCG VIAL) IV PRN ×2 (15:00→15:09)
[2017-09-29] MEDS: HYDROmorphone INJ* 1 MG/ML CARPUJECT SYRINGE IV PRN ×5 (15:04→16:33)
--- NOTE | 2017-09-29 15:35 | RAD ---
INDICATION: Right total knee replacement COMPARISON: June 30, 2017 TECHNIQUE: Portable AP and crosstable lateral views were obtained. FINDINGS: There is right knee arthroplasty. Both femoral and tibial components appear well seated. There is no overlying cooling jacket.. IMPRESSION: INTERVAL RIGHT KNEE ARTHROPLASTY
[2017-09-29] MEDS ORDERED: Warfarin TAB(*) 6 MG PO ONE (17:00)
[2017-09-29] MEDS: Cyclobenzaprine TAB* 10 MG PO PRN (17:42)
[2017-09-29] MEDS: oxyCODONE TAB* 5 MG TAB PO PRN ×2 (17:42→22:23)
[2017-09-29] MEDS: ceFAZolin 1 GM in Dextrose (*) 1 GM/50 ML BAG IVPB SCH (20:08)
[2017-09-29] MEDS: Docusate CAP* 100 MG PO SCH (21:10)
[2017-09-29] MEDS: Magnesium Hydroxide LIQ* 30 ML UDC PO SCH (21:11)
[2017-09-30] MEDS: oxyCODONE TAB* 5 MG TAB PO PRN ×3 (03:02→21:14)
[2017-09-30] MEDS: ceFAZolin 1 GM in Dextrose (*) 1 GM/50 ML BAG IVPB SCH ×2 (04:22→12:16)
[2017-09-30 06:13] LABS: Hematocrit 37 % (42-52); Hemoglobin 12.7 g/dl (14.0-18.0); Mean Platelet Volume 8 um3 (7.4-10.4); Platelet Count 227 10^3/ul (150-450)
[2017-09-30 06:23] LABS: INR 1.06 (0.77-1.02)
[2017-09-30 06:31] LABS: EGFR Non-African American 86.9 (>60)
--- NOTE | 2017-09-30 07:35 | CONS ---
[facility] MEDICINE CONSULTATION REPORT: DATE OF CONSULT: 09/29/17 PROVIDER: Afshan Moss NP ATTENDING PHYSICIAN: Dr. Salamanca. CONSULTING PHYSICIAN: Dr. Radha Foley (dictated by Afshan Moss NP). REASON FOR CONSULT: Management of comorbid medical conditions. HISTORY OF PRESENT ILLNESS: Mr. Sunshine is a 62-year-old male that presented to the hospital today for an elective right total knee arthroplasty with Dr. Salamanca. In brief, the patient has had ongoing pain and failed conservative measures; therefore, opted to have an elective right total knee arthroplasty which was scheduled for today, 09/29/[address] Salamanca. In the preoperative period, the patient states that he is feeling well, in his normal state of health. He does report that he has had a mild cough x3 weeks for which he was seen by his primary care provider and do not need any further treatment. The patient denies any recent fevers, chills, nausea, or vomiting. Denies any recent sick contacts. Denies any muscle aches or fatigues. His only significant past medical history is for hypertension and acid reflux. Given his history of hypertension, we were asked to consult on this patient. PAST MEDICAL HISTORY: 1. Hypertension. 2. Acid reflux. 3. Osteoarthritis. OUTPATIENT MEDICATIONS: 1. Lisinopril 20 mg p.o. daily. 2. Vitamin C p.o. daily. 3. Advil as needed. 4. [place] as needed. ALLERGIES: The patient has no known drug allergies. FAMILY HISTORY: Significant for grandmother who of possibly lung cancer and father who had skin cancer. SOCIAL HISTORY: The patient is a former smoker who quit 2 years ago. Prior to that, he smoked a pack to a pack and a half a day for 25 years. He does report alcohol use, drinking 2 to 4 beers daily. He denies any drug use. He is and lives with his , Betty who is his surrogate decision maker in the event he is unable to make his own medical decisions. REVIEW OF SYSTEMS: General: Denies any fevers, chills, or unintended weight loss. Cardiac: No chest pain or edema. Respiratory: Positive for occasional cough. Denies any shortness of breath or chest congestion. GI: Denies any nausea or vomiting. Denies any diarrhea or abdominal pain. : Denies any hematuria or dysuria. Neuro: Denies any focal weakness or sensory loss. Eyes : No visual complaints. ENT: No dysphagia. Musculoskeletal: Denies any arthralgias or myalgias. Skin: He does report psoriasis, rash to his bilateral lower thighs. Psych: Denies any depression or anxiety. PHYSICAL EXAM: Vital Signs: Temperature was 97.5, heart rate was 85, respirations 16, O2 saturation was 94%, blood pressure was 137/87. General: Mr. Sunshine is found sitting in his bed. He is in no acute distress. Neuro: He is alert and oriented x3. He moves all extremities. There is no facial asymmetry or focal weaknesses. Extraocular eye movements are intact. Heart: S1 and S2. There are no murmurs, rubs, or gallops. It is regular rate and rhythm. Lungs are clear to auscultation bilaterally. No accessory muscle use and good aeration is noted. Abdomen is soft and nontender. Bowel sounds are positive x4. Extremities: There is no cyanosis or edema. Pedal pulses are +2 bilaterally. Skin: Dressing is dry and intact to his right knee. DIAGNOSTIC STUDIES/LAB DATA: Preoperatively, on 09/16/17, his WBCs were 8.2, RBCs 4.80, hemoglobin 16.5, hematocrit was 48, and platelet count was 250. On 09/16/17, his INR was 0.90, APTT was 32.0. On 09/16/17, his sodium was 136, potassium was 4.2, chloride 103, anion gap was 9, carbon dioxide was 24, BUN was 10, creatinine 0.80, glucose was 77, calcium 9.5. ASTs were 22, ALTs were 31. IMPRESSION AND PLAN: Mr. Sunshine is a 62-year-old male with past medical history significant for hypertension and acid reflux, who presented to the hospital today for a planned right total knee arthroplasty in the immediate postoperative period. He has no complaints. Hospital Medicine was called for consultation in regards to his hypertension. Our recommendations are as follows : 1. Status post right total knee arthroplasty, management per Orthopedics. PT and OT as per Orthopedics. 2. Hypertension. We will continue him on his lisinopril 20 mg p.o. daily. 3. DVT prophylaxis per orthopedics. 4. Code status is full code. 5. FEN. He can continue on a heart-healthy diet. TIME SPENT: Time spent was approximately 45 minutes on this consultation, more than half the time was spent with the patient at the bedside reviewing events leading to the hospitalization, performing physical exam, and reviewing my plan of care. Thank you for including us in consultation. We will sign off, please contact us if any further management of his hypertension is needed. AFSHAN MOSS NP [id number]/[facility] #: [id number] HIEU
[2017-09-30] MEDS: Morphine TAB Extended Release (*) 30 MG TAB.ER PO SCH ×2 (07:50→21:09)
[2017-09-30] MEDS: Lisinopril TAB* 10 MG PO SCH (07:51)
[2017-09-30] MEDS: Docusate CAP* 100 MG PO SCH ×2 (07:51→21:09)
[2017-09-30] MEDS: Cyclobenzaprine TAB* 10 MG PO PRN ×2 (07:51→21:10)
--- NOTE | 2017-09-30 08:39 | PN ---
Progress Note - Progress Note Date of Service: 09/30/17 SOAP: Subjective: 62 y/o male s/p R TKA by DR. Salamanca 09/29. VSS afebrile overnight. C/O pain, pain medications adjusted by DR. Salamanca this AM. working well with PT, + fatigue. Objective: General- Well appearing, NAD, AO MSK- Mild non-tender induration at R upper thigh, dressing intact, no drainage noted, drain removed by DR. Salamanca this AM no complications. + DF/PF, PT 2+, neg homans. Vital Signs Temp 97.8 F 09/30/17 07:56 Pulse 102 09/30/17 07:56 Resp 18 09/30/17 08:24 BP 137/84 09/30/17 07:56 Pulse Ox 90 09/30/17 07:56 Intake & Output 09/29/17 09/30/17 09/30/17 18:59 06:59 18:59 Intake Total 2480 1280 230 Output Total 1200 Balance 2480 80 230 Weight 92.079 kg Intake: IV Fluids 2000 1040 ABX - CEFAZOLIN 55 LR 2000 985 Oral 480 240 230 Output: Urine 0 Ocasio 1200 Other: # Bowel Movements 0 Assessment: Stable 62 y/o male s/p R TKA by DR. Salamanca 09/29. Plan: - DVT prophylaxis- lovenox, coumadin 6mg tonight - Continue PT/ OT - Follow up with Dr. Salamanca within 10-14 days post-op - H&H stable, continue to monitor Active Medications Generic Name Dose Route Start Last Admin Trade Name Freq PRN Reason Stop Dose Admin Acetaminophen 650 mg 09/29/17 12:56 Tylenol Tab* PO Q4H PRN PAIN OR TEMPERATURE Bisacodyl 10 mg 09/29/17 12:56 Dulcolax Supp* CO DAILY PRN constipation Cyclobenzaprine HCl 10 mg 09/29/17 12:56 09/30/17 07:51 Flexeril Tab* PO 10 mg TID PRN Administration SPASMS Diphenhydramine HCl 12.5 mg 09/29/17 12:56 Benadryl Iv* IV Q6H PRN PRURITIS Docusate Sodium 100 mg 09/29/17 21:00 09/30/17 07:51 Colace Cap* PO 100 mg BID PAULO Administration Enoxaparin Sodium 30 mg 09/30/17 12:00 Lovenox(*) SUBCUT Q24H PAULO Cefazolin Sodium/Dextrose 1 gm in 50 mls @ 200 mls/hr 09/29/17 20:00 04:22 Kefzol 1 Gm In Dextrose Duplex (*) IVPB 09/30/17 12:14 200 mls/hr Q8H PAULO Administration Lactated Ringer's 1,000 mls @ 100 mls/hr 09/29/17 13:00 09/30/17 03:05 Lactated Ringers 1000 Ml Bag* IV 100 mls/hr PER RATE PAULO Administration Lactulose 30 ml 09/29/17 12:56 Lactulose* PO Q6H PRN constipation Lisinopril 20 mg 09/30/17 09:00 09/30/17 07:51 Prinivil Tab* PO 20 mg QAM PAULO Administration Magnesium Hydroxide 30 ml 09/29/17 21:00 09/29/17 21:11 Milk Of Magnesia Liq* PO Not Given BID [facility] Magnesium Hydroxide 30 ml 09/29/17 12:56 Milk Of Magnesia Liq* PO Q6H PRN constipation Morphine Sulfate 2 mg 09/29/17 12:56 Morphine Inj (Syringe)* IV Q2H PRN PAIN Morphine Sulfate 30 mg 09/30/17 08:00 09/30/17 07:50 Ms Contin(*) PO 30 mg Q12H PAULO Administration Naloxone HCl 0.08 mg 09/29/17 12:45 Narcan* IV 09/30/17 12:44 Q2M PRN severe induced resp depression Ondansetron HCl 4 mg 09/29/17 12:56 Zofran Inj* IV Q6H PRN nausea Ondansetron HCl 4 mg 09/29/17 12:56 Zofran Tab* PO Q6H PRN NAUSEA Oxycodone HCl 10 mg 09/29/17 12:56 09/30/17 03:02 Roxycodone Tab* PO 10 mg Q4H PRN Administration SEVERE PAIN Oxycodone/Acetaminophen 2 tab 09/29/17 12:56 Percocet 5/325 Tab* PO Q4H PRN PAIN Oxycodone/Acetaminophen 1 tab 09/29/17 12:56 Percocet 5/325 Tab* PO Q4H PRN PAIN Polyethylene Glycol/Electrolytes 17 gm 09/29/17 12:56 Miralax* PO DAILY PRN Constipation
[2017-09-30] MEDS: Magnesium Hydroxide LIQ* 30 ML UDC PO SCH ×2 (09:18→21:03)
[2017-09-30] MEDS ORDERED: Calcium Carbonate CHEW TAB* 500 MG (TUMS) PO PRN (10:15)
[2017-09-30] MEDS: Famotidine TAB* 20 MG PO SCH ×2 (10:51→21:10)
[2017-09-30] MEDS: Enoxaparin(*) 30 MG/0.3 ML SYR SUBCUT SCH (12:16)
--- NOTE | 2017-09-30 15:18 | OP ---
OPERATIVE REPORT: DATE OF OPERATION: 09/29/17 DATE OF : 57 SURGEON: Ruby Salamanca MD CONSUMER EDUCATOR: JESÚS Zaragoza Mr. Darling did help throughout the procedure with preparation of the leg, wound retraction, manipulat ion of the knee, and wound closure. ANESTHESIOLOGIST: Dr. Miller. ANESTHESIA: General with adductor nerve block. PRE-OP DIAGNOSIS: Posttraumatic severe osteoarthritis of the right knee joint. POST-OP DIAGNOSIS: Posttraumatic severe osteoarthritis of the right knee joint. OPERATIVE PROCEDURE: Right total knee arthroplasty. TOURNIQUET TIME: 51 minutes. COMPLICATIONS: None. ESTIMATED BLOOD LOSS: 200 cc. SPECIMENS: Bone and cartilage from the right knee joint sent to Pathology. BRIEF HISTORY/INDICATIONS: Mr. Sunshine is a 62-year-old gentleman who had a Locqus Comp injury result ing in meniscal tear. He went on to have arthroscopy, injections, physical therapy and eventually ra diograph and study showing posttraumatic osteoarthritis. Due to the tricompartmental nature of his o verall arthritis, I recommended a total knee arthroplasty and this is authorized by [facility]. He continues to have decreased quality of life and severe pain. He elected to proceed with surgery. Informed consent was obtained from the patient. He understands the risks of surgery included, but we re not limited to bleeding, infection, damage to nearby structures, continued pain, need for further surgery, intraoperative fracture, nerve palsy, hardware failure or loosening, knee stiffness, loss of motion, stroke, heart attack, blood clot, and . He wished to proceed. HARDWARE USED: This is a cemented [employer] total knee arthroplasty hardware. Two packages o f Simplex bone cement. For the femur, a size 6 right posterior stabilized Legion Oxinium femoral com ponent. For the tibia, a size 6 right tibial baseplate. For the insert, a 9-mm posterior stabilized articular insert size 5/6 and for the patella, a 35-mm 3-peg all poly patella. INTRAOPERATIVE FINDINGS: Intraoperatively, the patient was noted to have complete loss of cartilage along the medial femoral condyle and medial patellar facet. DESCRIPTION OF PROCEDURE: Mr. Sunshine was identified in the preanesthesia unit. His right lower extremi ty was marked as the correct operative side. Informed consent was signed and placed in the chart. H parag was taken to the operating room and had an adductor nerve block placed as well as general anesthesi a. A Ocasio catheter was placed. Tourniquet was placed on the right thigh. Right lower extremity wa s prepped and draped in the usual sterile fashion. A preop time-out was made to correctly identify t he patient's side and site. Appropriate perioperative antibiotics were given within 1 hour of incisi on. A 12-cm midline incision was made with a 10-blade and carried down to the extensor mechanism. A new 10-blade was used to make a standard medial parapatellar arthrotomy. The patella was subluxed latera lly. Electrocautery was used to subperiosteally elevate the soft tissue off the superomedial tibia t o the mid sagittal plain. The knee was flexed up. The anterior horn of the lateral meniscus and ACL were sharply released. A drill was used to enter the distal femur. Intramedullary distal femoral cu tting guide was pinned on the distal femur. Oscillating saw was used to make the distal femoral cut. The external rotation guide was then pinned on the distal femur. The distal femur was sized to a si ze 6. Size 6 multi-cutting jig was pinned on the distal femur. Oscillating saw was used to make the appropriate chamfer cuts. The PCL was completely released. The tibia was subluxed anteriorly. Extramedullary tibial cutting gu starr was pinned on the proximal tibia. Oscillating saw was used to make the proximal tibial cut perpe ndicular to the mechanical axis of the tibia. The bone was carefully removed. The knee was brought out into full extension. A spacer block had excellent fit in full extension. Medial and lateral lig aments were well balanced. Flexion and extension gaps were well balanced. The knee was flexed up. [employer] trading analyst was placed both medially and laterally. Any remaining meniscus was removed using walter ctrocautery. Curved osteotome was used to remove posterior osteophytes. Tibial tray and drop esvin were placed and once again confirmed with satisfactory proximal tibial cut. A size 6 right femoral trial was impacted on to the distal femur and had good stability. The box fo r the posterior stabilized implant was prepared using a reamer and box cut osteotome. A size 6 tibia l tray trial with a 9- mm insert trial was placed and the knee was taken through a range of motion. The knee had full extension to 130 degrees of flexion. There was satisfactory patellofemoral trackin g. The patella was everted. A 9-mm of the patellar bone and cartilage was carefully removed using a n oscillating saw. The patella was sized to a size 35. Three peg holes were drilled through the [facility] e 35 guide. A 35 trial paella was placed and the knee was taken through a range of motion. There wa s satisfactory patellofemoral tracking. All trials were removed. The tibia was subluxed anteriorly and sized to a size 6. Proximal tibia was prepared using a size 6 keel punch. All bony cut surfaces were copiously irrigated with sterile pat ine and dried. The final implants were cemented into place starting with the tibia, followed by the femur and lastly the patella. A 9-mm insert trial was placed and the knee was brought out into full extension. Tourniquet was turned down at 51 minutes. Electrocautery was used to obtain meticulous h emostasis. The knee was copiously irrigated with sterile saline. Once the cement had fully cured, t he insert trial was removed. Any excess cement was removed from around the capsule and the implant. Final insert chosen was a 9-mm posterior stabilized articular insert size 5/6. This was locked into position on the tibial tray without difficulty. The knee was once again copiously irrigated with sterile saline. The extensor mechanism was closed u sing interrupted #1 Vicryls. The rest of the incision was closed in a layered fashion using 0 and 2- 0 Vicryls. Skin was closed using running 3-0 nylon suture. Sterile Xeroform, 4x4s, and Webril were used to cover the incision. Rell wrap and cold pack were placed over this. The patient's anesthesia was reversed without difficul ty. He was taken to the PACU in stable condition. Intended weightbearing will be weightbearing as to lerated. Intended DVT prophylaxis will be Coumadin with a Lovenox bridge. [id number]/[facility] #: [id number]
[2017-09-30] MEDS ORDERED: Warfarin TAB(*) 6 MG PO ONE (17:00)
[2017-09-30] MEDS ORDERED: Warfarin TAB(*) 4 MG PO ONE (17:00)
[2017-09-30] MEDS: oxyCODONE/Acetamin 5/325 MG* TAB PO PRN ×2 (17:33→23:51)
[2017-10-01] MEDS: oxyCODONE TAB* 5 MG TAB PO PRN ×2 (04:09→10:07)
[2017-10-01 05:44] LABS: Hematocrit 35 % (42-52); Hemoglobin 11.7 g/dl (14.0-18.0); Mean Platelet Volume 8 um3 (7.4-10.4); Platelet Count 206 10^3/ul (150-450)
[2017-10-01 06:01] LABS: INR 1.26 (0.77-1.02)
[2017-10-01] MEDS: Docusate CAP* 100 MG PO SCH (08:07)
[2017-10-01] MEDS: Lisinopril TAB* 10 MG PO SCH (08:07)
[2017-10-01] MEDS: Morphine TAB Extended Release (*) 30 MG TAB.ER PO SCH (08:08)
[2017-10-01] MEDS: oxyCODONE/Acetamin 5/325 MG* TAB PO PRN ×2 (08:08→12:15)
[2017-10-01] MEDS: Famotidine TAB* 20 MG PO SCH (08:08)
[2017-10-01] MEDS: Magnesium Hydroxide LIQ* 30 ML UDC PO SCH (08:13)
--- NOTE | 2017-10-01 11:03 | PN ---
Progress Note - Progress Note Date of Service: 10/01/17 SOAP: Subjective: 62 y/o male s/p R TKA by Dr. Uriostegui 09/29. Patient feeling better with adjustment in pain medicaiton, however continues to have pain with increased movement/ PT. Fatigued. VSS, afebrile overnight. Objective: General- Well appearing, NAD, AO sitting in chair, active with PT. MSK- DF/PF 2+ b/l, PT 2+, negative homans sign SUrgical dressing removed, incision c/d/i, odl blood drainage seen. + erythema surrounding incision with blaching, tender to palpation, + warmth. redressed, + induration of anterior thigh, tender with palpation. Vital Signs Temp 97.9 F 10/01/17 07:32 Pulse 103 10/01/17 07:32 Resp 17 10/01/17 10:07 BP 139/71 10/01/17 07:32 Pulse Ox 93 10/01/17 07:32 Intake & Output 09/30/17 10/01/17 10/01/17 18:59 06:59 18:59 Intake Total 1865 400 Output Total 600 0 Balance 1265 400 Intake: IV Fluids 1085 ABX - CEFAZOLIN 50 LR 1035 Oral 780 400 Output: Urine 600 0 Other: Estimated Void Large Large Date of Last Bowel 09/30/17 Movement # Bowel Movements 1 Estimated Stool Amount Small Small # Voids 1 1 Assessment: Stable 62 y/o male s/p R TKA by Dr. Uriostegui 09/29. Plan: - DVT prophylaxis- lovenox, coumadin 8mg tonight. - Continue PT/ OT - Follow up w Dr. uriostegui within 10-14 days post-op - H&H stable - post-op IV ABX - completed. - Keflex for erythema surrounding wound, continue to monitor. Active Medications Generic Name Dose Route Start Last Admin Trade Name Freq PRN Reason Stop Dose Admin Acetaminophen 650 mg 09/29/17 12:56 Tylenol Tab* PO Q4H PRN PAIN OR TEMPERATURE Bisacodyl 10 mg 09/29/17 12:56 Dulcolax Supp* AL DAILY PRN constipation Calcium Carbonate 500 mg 09/30/17 10:15 Tums* PO Q4H PRN indigestions Cephalexin HCl 500 mg 10/01/17 13:00 Keflex Cap* PO 10/07/17 22:00 QID PAULO Cyclobenzaprine HCl 10 mg 09/29/17 12:56 09/30/17 21:10 Flexeril Tab* PO 10 mg TID PRN Administration SPASMS Diphenhydramine HCl 12.5 mg 09/29/17 12:56 Benadryl Iv* IV Q6H PRN PRURITIS Docusate Sodium 100 mg 09/29/17 21:00 10/01/17 08:07 Colace Cap* PO 100 mg BID PAULO Administration Enoxaparin Sodium 30 mg 09/30/17 12:00 09/30/17 12:16 Lovenox(*) SUBCUT 30 mg Q24H PAULO Administration Famotidine 20 mg 09/30/17 11:00 10/01/17 08:08 Pepcid Tab* PO 20 mg BID PAULO Administration Lactulose 30 ml 09/29/17 12:56 Lactulose* PO Q6H PRN constipation Lisinopril 20 mg 09/30/17 09:00 10/01/17 08:07 Prinivil Tab* PO 20 mg QAM PAULO Administration Magnesium Hydroxide 30 ml 09/29/17 21:00 10/01/17 08:13 Milk Of Magnesia Liq* PO Not Given BID PAULO Magnesium Hydroxide 30 ml 09/29/17 12:56 Milk Of Magnesia Liq* PO Q6H PRN constipation Morphine Sulfate 2 mg 09/29/17 12:56 09/30/17 17:39 Morphine Inj (Syringe)* IV 2 mg Q2H PRN Administration PAIN Morphine Sulfate 30 mg 09/30/17 08:00 10/01/17 08:08 Ms Contin(*) PO 30 mg Q12H PAULO Administration Ondansetron HCl 4 mg 09/29/17 12:56 Zofran Inj* IV Q6H PRN nausea Ondansetron HCl 4 mg 09/29/17 12:56 Zofran Tab* PO Q6H PRN NAUSEA Oxycodone HCl 10 mg 09/29/17 12:56 10/01/17 10:07 Roxycodone Tab* PO 10 mg Q4H PRN Administration SEVERE PAIN Oxycodone/Acetaminophen 2 tab 09/29/17 12:56 10/01/17 08:08 Percocet 5/325 Tab* PO 2 tab Q4H PRN Administration PAIN Oxycodone/Acetaminophen 1 tab 09/29/17 12:56 Percocet 5/325 Tab* PO Q4H PRN PAIN Pharmacy Profile Note 0 note 09/30/17 17:00 09/30/17 17:44 Coumadin Daily Reminder* FOLLOW UP 1 note 1700 [facility] Administration Polyethylene Glycol/Electrolytes 17 gm 09/29/17 12:56 Miralax* PO DAILY PRN Constipation Warfarin Sodium 8 mg 10/01/17 17:00 Coumadin Tab(*) PO DAILY@1700 [facility] Protocol
[2017-10-01] MEDS: Enoxaparin(*) 30 MG/0.3 ML SYR SUBCUT SCH (12:57)
[2017-10-01] MEDS ORDERED: Cephalexin CAP* 500 MG PO SCH (13:00)
[2017-10-01 13:30] VITALS: BP 116/71
[2017-10-01] MEDS ORDERED: Warfarin TAB(*) 4 MG PO SCH (17:00)
== END 2017-10-01 14:15 | disposition home health service (06) | DRG 302 ==
LOC: AA 08:24 → SSU 17:12
PROVIDERS: ADMIT Orthopaedic Surgery Adult Reconstructive Orthopaedic Surgery; ATTEND Orthopaedic Surgery Adult Reconstructive Orthopaedic Surgery
PROC: 0SRC069 Replacement of Right Knee Joint with Oxidized Zirconium on Polyethylene Synthetic Substitute, Cemented, Open Approach (ICD-10-PCS; principal; 2017-09-29 11:00)
DX: M17.31 Unilateral post-traumatic osteoarthritis, right knee (principal); E66.9 Obesity, unspecified; I10 Essential (primary) hypertension; K21.9 Gastro-esophageal reflux disease without esophagitis; L53.8 Other specified erythematous conditions; R53.83 Other fatigue; M25.761 Osteophyte, right knee; X58.XXXS Exposure to other specified factors, sequela; Z87.891 Personal history of nicotine dependence; Z72.89 Other problems related to lifestyle; Z68.29 Body mass index [BMI] 29.0-29.9, adult; Z80.1 Family history of malignant neoplasm of trachea, bronchus and lung; Z80.8 Family history of malignant neoplasm of other organs or systems; T14.90XS Injury, unspecified, sequela
CPT/HCPCS: 36415; 80048; 85014; 85018; 85049; 85610; 88305; 88311; 94760; A9270-GY; C1776; J0690; J1100; J1170; J1650; J1885; J2250; J2270; J2405; J2704; J3010

== ENCOUNTER 2018-02-12 15:08 | Observation (INO) | payer OTHER ==
[2018-02-12] MEDS ORDERED: Morphine VIAL* 4 MG/ML VIAL (1 ml vial) IV ONE ×2 (15:51→18:06)
[2018-02-12] MEDS ORDERED: Aspirin 81 mg CHEW TAB* 81 MG TAB.CHEW PO ONE (16:04)
[2018-02-12] MEDS ORDERED: Nitroglycerin TAB 0.4 MG* 0.4 MG TAB SL ONE (16:04)
--- NOTE | 2018-02-12 16:24 | RAD ---
INDICATION: Chest pain COMPARISON: September 16, 2017 TECHNIQUE: An AP portable view obtained at 1615 hours is submitted. FINDINGS: Bones/Soft Tissues: There are no acute bony findings. Cardiomediastinal: The cardiomediastinal silhouette is normal. Lungs: There are no infiltrates. Pleura: There are no pleural effusions. Other: None IMPRESSION: NO ACTIVE DISEASE.
[2018-02-12 16:28] LABS: ABS Basophils 0 10^3/ul (0-0.2); ABS Eosinophils 0.1 10^3/ul (0-0.6); ABS Monocytes 0.8 10^3/ul (0-0.8); ABS Neutrophils 2.9 10^3/ul (1.5-7.7); ABS Nucleated RBC 0 10^3/ul; Eosinophil % 1.5 % (0-6); Hematocrit 44 % (42-52); Hemoglobin 15.4 g/dl (14.0-18.0); Lymphocyte % 43.7 % (25-47); Mean Corpuscular HGB Conc 35 g/dl (31-36); Mean Corpuscular Hemoglobin 32 pg (27-31); Mean Corpuscular Volume 91 fL (80-94); Nucleated Red Blood Cells % 0; Platelet Count 279 10^3/ul (150-450); Red Blood Count 4.86 10^6/ul (4.00-5.40); Red Cell Distribution Width 16 % (10.5-15); White Blood Count 6.8 10^3/ul (3.5-10.8)
[2018-02-12] MEDS: NS 0.9% 1000 ML* 2,000 ML IV ONE (16:28)
[2018-02-12 16:36] LABS: INR 0.92 (0.77-1.02)
--- OUTSIDE RECORDS SUMMARY | 2018-02-12 16:39 | XMS REPORT ---
:1955 External Reference #:[id number] Author Organization [facility] Address [address] [facility] [place] [address] [place] [address] Phone [phone] Care Team Providers Name Role Phone Viridiana Carpio MD Primary Care Physician Unavailable Payers Type Date Identification Numbers Payment Provider Subscriber Workers Compensation Effective: Policy Number: Kaushik Reza Shelby Cervantes 2016 [id number] Onset: 2016 Group Name: [phone] [address] PayID: [place] [address] Workers Compensation Onset: 2011 Policy Number: State Insurance Shelby Cervantes [id number] [facility] Group Number: [id number] [address] [address] PayID: [place] [address] Problems Date Description Provider Status Onset: 08/06/2016 Knee joint effusion Krys Bowden MD Active Onset: 08/20/2016 Loose body in knee Krys Bowden MD Active Onset: 08/20/2016 Sprain of anterior cruciate ligament of Krys Bowden MD Active right knee, subs Onset: 11/16/2016 Sprain of cruciate ligament of knee Krys Bowden MD Active Onset: 11/16/2016 Current tear of medial cartilage AND/OR Krys Bowden MD Active meniscus of knee Onset: 08/11/2017 Osteochondritis dissecans Krys Bowden MD Active Onset: 08/26/2017 Localized, secondary osteoarthritis Ruby Salamanca M.D. Active Onset: 10/14/2017 Arthroplasty of knee Ruby Salamanca M.D. Active Family History Date Family Member(s) Problem(s) Comments General Cancer Social History Type Date Description Comments Lives With Spouse Occupation [employer] Use Currently consumes alcohol Smoking Patient is a former smoker Exercise Type/Frequency Does not exercise Allergies, Adverse Reactions, Alerts Date Description Reaction Status Severity Comments 10/14/2011 NKDA active Medications Medication Date Status Form Strength Qnty SIG Indications Ordering Provider Percocet 01/27/ Active Tablets 5-325mg 90tabs 1-2 tabs M25.561 Ruby 2018 by mouth Cheikh, q8 as M.D. needed pain Meloxicam 12/05/ Active Tablets 15mg 30tabs 1 by M25.561 Ruby 2018 mouth Cheikh, every M.D. day Lyrica 12/05/ Active Capsules 50mg 60caps 1 pill M25.561 Ruby 2018 by mouth Cheikh, three M.D. times a day Cyclobenzaprine 11/07/ Active Tablets 10mg 30tabs 1 tablet M25.561 Ruby HCL 2017 by mouth Cheikh, q8 hours M.D. as needed muscle spasms Ambien 11/07/ Active Tablets 10mg 14tabs take 1 M25.561 Ruby 2018 pill by Cheikh, mouth at M.D. night for sleep Compression 10/14/ Active Misc 1units - M25.461 Ruby Stockings 2017 rle Cheikh, swelling M.D. /edema- need thigh high Cane Active Misc 1units disp 1 M23.41 Audieb 2017 four MD Dennise prong cane M25.461 Vitamin C Plus 04/29/2017 Active Tablets 1000mg 60tabs take 1 by M25.461 marshall Coreas MD Advil Active Tablets 200mg as needed Unknown Lisinopril Active Tablets 20mg 1 by mouth Unknown every day OTC Acid Reflux Active Unknown Medication Hheart Active Unknown Medication [place] 01/18/2018 - Hx Tablets 5-325mg 60tabs 1-2 tabs Z47.1 Ruby 01/27/2018 by mouth Cheikh, every 12 M.D. hours Vicodin 12/26/2017 - Hx Tablets 5-300mg 90tabs 1-2 tabs Z47.1 Ruby 01/18/2018 by mouth Cheikh, q12 hours M.D. as needed pain Tramadol HCL 11/07/2017 - Hx Tablets 50mg 60tabs 1 tablet M25.561 Ruby 01/27/2018 by mouth Cheikh, every 6 M.D. hours as needed pain Aspirin 10/24/2017 - Hx Tablets 325mg 14tabs take 1 by Ruby 12/04/2017 mouth once Cheikh, a day for M.D. two weeks Percocet 10/21/2017 - Hx Tablets 5-325mg 60tabs 1-2 tabs Ruby 11/07/2017 by mouth Cheikh, every 4-6 M.D. hours as needed pain [place] 06/30/2017 - Hx Tablets 5-325mg 30tabs take 1 tab S83.511D Ruby 11/07/2017 every 12 Cheikh, hours as M.D. needed for pain [place] 04/29/2017 - Hx Tablets 5-325mg 60tabs 1-2 tab by M25.461 Zaneb 06/30/2017 mouth Yaseen, every 6 MD hours as needed pain Oxycodone HCL 04/07/2017 - Hx Capsules 5mg 20caps 1 tabs by Zaneb 05/31/2017 mouth Yaseen, every 12 MD hours as needed pain Percocet 04/07/2017 - Hx Tablets 5-325mg 60tabs 1-2 tabs Zaneb 05/22/2017 by mouth Yaseen, every 4-6 MD hours as needed pain for post op pain. Do not fill until 04/17/17 No Active 10/14/2016 - Hx Unknown Medications 04/07/2017 No Active 08/06/2016 - Hx Unknown Medications 08/06/2016 Percocet 08/06/2016 - Hx Tablets 5-325mg 40tabs take 1 M25.461 Zaneb 09/23/2016 tabs as Yaseen, needed for MD pain every 8 hours. do not combine with tylenol Naprosyn 01/06/2012 - Hx Tablets 500mg 60tabs twice 724.2 Leonel 07/29/2016 daily with Veigel, food prn M.D. Amitriptyline 01/06/2012 - Hx Tablets 25mg 90tabs 1-3 724.2 Leonel HCL 08/05/2016 tablets po lucio Mast M.D. Medrol Dosepak 10/14/2011 - Hx Tablets 4mg [...] Dennise Vital Signs Date Vital Result Comment 02/10/2018 Height 71 inches 5'11" Weight 183.00 lb BP Systolic 136 mmHg BP Diastolic 86 mmHg Body Temperature 99.2 F Pain Level 7 BMI (Body Mass Index) 25.5 kg/m2 01/27/2018 Height 71 inches 5'11" Weight 185.00 lb BP Systolic Sitting 128 mmHg BP Diastolic Sitting 80 mmHg Respiratory Rate 16 /min Body Temperature 98.2 F Pain Level 7 BMI (Body Mass Index) 25.8 kg/m2 01/06/2018 Height 71 inches 5'11" Weight 185.00 lb BP Systolic 136 mmHg BP Diastolic 84 mmHg Body Temperature 97.9 F BMI (Body Mass Index) 25.8 kg/m2 12/26/2017 Height 71 inches 5'11" Weight 180.00 lb Heart Rate 96 /min BP Systolic 143 mmHg BP Diastolic 96 mmHg Body Temperature 97.5 F BMI (Body Mass Index) 25.1 kg/m2 12/05/2017 Height 70 inches 5'10" Weight 180.00 lb BP Systolic 134 mmHg BP Diastolic 88 mmHg Body Temperature 97.9 F Pain Level 5 BMI (Body Mass Index) 25.8 kg/m2 11/07/2017 Height 71 inches 5'11" Weight 186.00 lb BP Systolic 130 mmHg BP Diastolic 88 mmHg Body Temperature 98.8 F BMI (Body Mass Index) 25.9 kg/m2 10/24/2017 Height 71 inches 5'11" Weight 206.00 lb BP Systolic 132 mmHg BP Diastolic 82 mmHg Respiratory Rate 18 /min Body Temperature 97.9 F Pain Level 18 BMI (Body Mass Index) 28.7 kg/m2 10/14/2017 Height 71 inches 5'11" Weight 206.00 lb Heart Rate 89 /min Respiratory Rate 15 /min Body Temperature 98.0 F Pain Level 9 BMI (Body Mass Index) 28.7 kg/m2 09/12/2017 Height 71 inches 5'11" Weight 206.00 [...] Result H/L Range Note CBC Auto Diff 01/11/2018 White Blood Count 8.4 10^3/uL 3.5-10.8 Red Blood Count 4.80 10^6/uL 4.0-5.4 Hemoglobin 14.3 g/dL 14.0-18.0 Hematocrit 43 % 42-52 Mean Corpuscular Volume 91 fL 80-94 Mean Corpuscular Hemoglobin 30 pg 27-31 Mean Corpuscular HGB Conc 33 g/dL 31-36 Red Cell Distribution Width 17 % High 10.5-15 Platelet Count 297 10^3/uL 150-450 Mean Platelet Volume 7.9 um3 7.4-10.4 Abs Neutrophils 3.1 10^3/uL 1.5-7.7 Abs Lymphocytes 4.2 10^3/uL 1.0-4.8 Abs Monocytes 0.9 10^3/uL High 0-0.8 Abs Eosinophils 0.2 10^3/uL 0-0.6 Abs Basophils 0 10^3/uL 0-0.2 Abs Nucleated RBC 0 10^3/uL Granulocyte % 37.2 % Low 38-83 Lymphocyte % 49.7 % High 25-47 Monocyte % 10.7 % High 0-7 Eosinophil % 2.0 % 0-6 Basophil % 0.4 % 0-2 Nucleated Red Blood Cells % 0.1 Laboratory test finding 01/11/2018 C Reactive Protein 10.27 mg/L High < 5.00 1 Erythrocyte Sed Rate 17 mm/Hr 0-20 Inr/Protime 10/05/2017 Inr 1.72 High 0.77-1.02 2 CBC Auto Diff 09/16/2017 White Blood Count 8.2 10^3/uL 3.5-10.8 Red Blood Count 4.80 10^6/uL 4.0-5.4 Hemoglobin 16.5 g/dL 14.0-18.0 Hematocrit 48 % 42-52 Mean Corpuscular Volume 99 fL High 80-94 Mean Corpuscular Hemoglobin 34 pg High 27-31 Mean Corpuscular HGB Conc 35 g/dL 31-36 Red Cell Distribution Width 13 % 10.5-15 Platelet Count 250 10^3/uL 150-450 Mean Platelet Volume 8 um3 7.4-10.4 Abs Neutrophils 4.0 10^3/uL 1.5-7.7 Abs Lymphocytes 3.2 10^3/uL 1.0-4.8 Abs Monocytes 0.9 10^3/uL High 0-0.8 Abs Eosinophils 0.1 10^3/uL 0-0.6 Abs Basophils 0 10^3/uL 0-0.2 Abs Nucleated RBC 0 10^3/uL Granulocyte % 48.5 % 38-83 Lymphocyte % 39.6 % 25-47 Monocyte % 10.4 % High 1-9 Eosinophil % 1.0 % 0-6 Basophil % 0.5 % 0-2 Nucleated Red Blood Cells % 0 Comp Metabolic Panel 09/16/2017 Sodium 136 mmol/L 133-145 Potassium 4.2 mmol/L 3.5-5.0 Chloride 103 mmol/L 101-111 Co2 Carbon Dioxide 24 mmol/L 22-32 Anion Gap 9 mmol/L 2-11 Glucose 77 mg/dL 70-100 Blood Urea Nitrogen 10 mg/dL 6-24 Creatinine 0.80 mg/dL 0.67-1.17 BUN/Creatinine Ratio 12.5 8-20 Calcium 9.5 mg/dL 8.6-10.3 Total Protein 7.0 g/dL 6.4-8.9 Albumin 4.3 g/dL 3.2-5.2 Globulin 2.7 g/dL 2-4 Albumin/Globulin Ratio 1.6 1-3 Total Bilirubin 0.60 mg/dL 0.2-1.0 Alkaline Phosphatase 101 U/L 34-104 Alt 31 U/L 7-52 Ast 22 U/L 13-39 Egfr Non- 98.3 >60 Egfr 126.4 >60 3 Inr/Protime 09/16/2017 Inr 0.90 0.77-1.02 Laboratory test finding 09/16/2017 Partial Thrombo Time 32.0 seconds 26.0 -36.3 PTT Type & Screen 09/16/2017 Patient Blood Type O Positive Antibody Screen NEGATIVE Urinalysis Profile 09/16/2017 Urine Color Colorless Urine Appearance Clear Urine Specific [place] 1.001 Low 1.010-1.030 Urine pH 7.0 5-9 Urine Urobilinogen Negative Negative Urine Ketones Negative Negative Urine Protein Negative Negative Urine Leukocytes Negative Negative Urine Blood 1+ Negative Urine Nitrite Negative Negative Urine Bilirubin Negative Negative Urine Glucose Negative Negative Urine White Blood Cell Absent Absent Urine Red Blood Cell Absent Absent Urine Bacteria Absent Absent Urine Culture And 09/16/2017 Urine Culture SEE RESULT BELOW 4 Sensitivities Laboratory test finding 08/29/2017 C Reactive Protein 9.46 mg/L High < 5.00 5 Erythrocyte Sed Rate 16 mm/Hr 0-20 CBC Auto Diff 08/29/2017 White Blood Count [...] 0-2 Nucleated Red Blood Cells % 0.1 1 Acute inflammation: >10.00 2 CALL RESULTS TO [phone] EXT 325 3 Because ethnic data is not always readily available, this report includes an eGFR for both -Americans and non- Americans. The National Kidney Disease Education Program (NKDEP) does not endorse the use of the MDRD equation for patients that are not between the ages of 18 and 70, are , have extremes of body size, muscle mass, or nutritional status, or are non- or non-. According to the National Kidney Foundation, irrespective of diagnosis, the stage of the disease is based on the level of kidney function: Stage Description GFR(mL/min/1.73 m(2)) 1 Kidney damage with normal or decreased GFR 90 2 Kidney damage with mild decrease in GFR 60-89 3 Moderate decrease in GFR 30-59 4 Severe decrease in GFR 15-29 5 Kidney failure <15 (or dialysis) 4 SEE RESULT BELOW Name: SHELBY CERVANTES : [address]: Ruby Salamanca MD Acct: [id number] Unit: [id number] AGE: 62 Location: [facility] Re09/16/17 SEX: M Status: REG REF SPEC: [id number] LES: 09/16/[address]: Ruby Salamanca MD REQ: [id number] RECD: 09/16/17 STATUS: COMP HUAHR DR: Viridiana Carpio MD _ SOURCE: URINE SPDESC: ORDERED: Urine Culture Procedure Result Reported Site Urine Culture Final 09/17/17- 909 ML No Growth (<1,000 CFU/mL) * ML - MAIN LAB ([facility]) . END OF REPORT * ML=Testing performed at Main Lab DEPARTMENT OF PATHOLOGY, [address] [place] [address] Pk Cedeno M.D. Director [facility] # [id number] 5 Acute inflammation: >10.00 Procedures Date CPT Code Description Status 09/29/2017 93577 TKR Total Knee Replacement Completed 09/29/2017 41166 TKR Total Knee Replacement Completed 09/29/2017 45745 TKR Total Knee Replacement Completed 09/29/2017 03842 TKR Total Knee Replacement Completed 09/15/2017 68060 EKG, Interpretation Only Completed 09/15/2017 47735 EKG, Interpretation Only Completed 06/30/2017 24538 Inject/Drain Joint/Bursa Major W/O US Completed 04/18/2017 13706 Arthroscopy,Knee,Meniscectomy Media & Lateral Completed 12/14/2016 29783 Inject/Drain Joint/Bursa Major W/O US Completed 09/07/2016 02814 Inject/Drain Joint/Bursa Major W/O US Completed Encounters Type Date Location Provider CPT E/M Dx Office Visit 01/27/2018 [facility] Ruby Salamanca M.D. 05008 M25.561 10:15a [facility] M25.461 Z47.1 Z96.651 Office Visit 01/06/2018 9:15a [facility] Ruby Salamanca M.D. 04463 M25.561 [facility] M25.461 Z47.1 Z96.651 Office Visit 09/12/2017 8:15a [facility] Ruby Salamanca M.D. 65498 M25.561 [facility] M25.561 M25.461 M25.461 M17.31 M17.31 Office Visit 08/26/2017 9:00a [facility] Ruby Salamanca M.D. 29495 M93.261 [facility] M25.561 M17.31 Office Visit 08/11/2017 11:15a [facility] [place] [address] S83.511D C.[facility]. S83.241D M93.261 S83.511D Office Visit 07/28/2017 8:45a [facility] [place] [address] S83.511D C.M.A. S83.241D S83.511D Office Visit 02/11/2017 8:00a [facility] [place] [address] M25.461 C.M.A. S83.511D S83.241D Office Visit 11/16/2016 8:00a [facility] [place] [address] M25.461 C.M.A. S83.511A S83.241A S83.511D S83.241D Office Visit 10/14/2016 8:15a [facility] [place] [address] M25.461 C.M.A. M23.41 Office Visit 09/07/2016 1:15p [facility] [place] [address] M25.461 C.M.A. M23.41 M23.41 M25.461 Office Visit 08/20/2016 9:45a [facility] [place] [address] M25.461 C.M.A. S83.511A S83.511D S83.511D S83.241A M23.41 Office Visit 08/06/2016 9:15a [facility] [place] [address] M25.461 C.M.A. M25.461 M25.461 M25.461 Office Visit 10/14/2011 3:15p [facility] Leonel Mast M.D. 97888 724.2 AT [facility] Future Appointment(s):03/13/2018 8:15 am - Ruby Salamanca M.D. at [facility]02/27/2018 8:00 am - Ruby Salamanca M.D. at [facility]02/10/2018 - Ruby Salamanca M.D.M25.561 Pain in right kneeFollow up:Follow up: 4 axtpjK42.461 Effusion, right kneeZ47.1 Aftercare following joint replacement fbppvhuM44.651 Presence of right artificial knee joint
[2018-02-12 16:40] LABS: EGFR Non-African American 98.3 (>60)
--- OUTSIDE RECORDS SUMMARY | 2018-02-12 16:40 | XMS REPORT ---
:1955 External Reference #:[id number] Author Organization [facility] Address [address] [facility] [place] [address] [place] [address] Phone [phone] Care Team Providers Name Role Phone Viridiana Carpio MD Primary Care Physician Unavailable Payers Type Date Identification Numbers Payment Provider Subscriber Workers Compensation Effective: Policy Number: Kaushik Reza Shelby Cervantes 2016 [id number] Onset: 2016 Group Name: [phone] [address] PayID: [place] [address] Workers Compensation Onset: 2011 Policy Number: State Insurance Shelby Cervantes [id number] Fund Group Number: [id number] [address] [address] PayID: [place] [address] Problems Date Description Provider Status Onset: 08/06/2016 [...] 10mg 30tabs 1 tablet M25.561 Ruby HCL 2018 by mouth Cheikh, q8 hours M.D. as needed muscle spasms Ambien 11/07/ Active Tablets 10mg 14tabs take 1 M25.561 Ruby 2018 pill by Cheikh, mouth at M.D. night for sleep Compression 10/14/ Active Misc 1units - M25.461 Ruby Stockings 2017 rle Cheikh, swelling M.D. /edema- need thigh high Cane 07/28/ Active Misc 1units disp 1 M23.41 Edytaneb 2017 jett Bowden MD prong cane M25.461 Vitamin C Plus 04/29/2017 Active Tablets 1000mg 60tabs take 1 by M25.461 marshall Coreas MD Advil Active Tablets 200mg as needed Unknown Lisinopril Active Tablets 20mg 1 by mouth Unknown every day OTC Acid Reflux Active Unknown Medication Hheart Active Unknown Medication [place] 01/18/2018 - Hx Tablets 5-325mg 60tabs 1-2 [...] every 4-6 M.D. hours as needed pain [place] 06/30/2017 - Hx Tablets 5-325mg 30tabs take 1 tab S83.511D Ruby 11/07/2017 every 12 Cheikh, hours as M.D. needed for pain [place] 04/29/2017 - Hx Tablets 5-325mg 60tabs 1-2 [...] Dennise Vital Signs Date Vital Result Comment 01/27/2018 Height 71 inches 5'11" Weight 185.00 [...] Color Colorless Urine Appearance Clear Urine Specific [place] 1.001 Low 1.010-1.030 Urine pH 7.0 5-9 [...] Acute inflammation: >10.00 2 CALL RESULTS TO [phone] EXT 325 3 Because ethnic data is [...] [address]: Ruby Salamanca MD Acct: [id number] Unit: [id number] AGE: 62 Location: [facility] Re09/16/17 SEX: M Status: REG REF SPEC: [id number] LES: 09/16/[address] [facility] [address]: Ruby Salamanca MD REQ: [id number] RECD: 09/16/17 STATUS: GENE ELIAS DR: Viridiana Carpio MD _ SOURCE: URINE SPDESC: ORDERED: Urine Culture Procedure Result Reported Site Urine Culture Final 09/17/17- 09 ML No Growth (<1,000 CFU/mL) * [facility] - [facility]) . END OF REPORT * ML=Testing performed at Main Lab DEPARTMENT OF PATHOLOGY, [address] [place] [address] Pk Cedeno M.D. Director [facility] # [id number] 5 Acute inflammation: >10.00 Procedures Date CPT Code Description Status 09/29/2017 71899 TKR Total Knee Replacement Completed 09/29/2017 08661 TKR Total Knee Replacement Completed 09/29/2017 93605 TKR Total Knee Replacement Completed 09/29/2017 69540 TKR Total Knee Replacement Completed 09/15/2017 09274 EKG, Interpretation Only Completed 09/15/2017 85851 EKG, Interpretation Only Completed 06/30/2017 39864 Inject/Drain Joint/Bursa Major Completed 04/18/2017 32932 Arthroscopy,Knee,Meniscectomy Media & Lateral Completed 12/14/2016 62853 Inject/Drain Joint/Bursa Major Completed 09/07/2016 56839 Inject/Drain Joint/Bursa Major Completed Encounters Type Date Location Provider CPT E/M Dx Office Visit 01/27/2018 [facility] Ruby Salamanca M.D. 42442 M25.561 10:15a [facility] M25.461 Z47.1 Z96.651 Office Visit 01/06/2018 9:15a [facility] Ruby Salamanca M.D. 54814 M25.561 [facility] M25.461 Z47.1 Z96.651 Office Visit 09/12/2017 8:15a [facility] Ruby Salamanca M.D. 77737 M25.561 [facility] M25.561 M25.461 M25.461 M17.31 M17.31 Office Visit 08/26/2017 9:00a [facility] Ruby Salamanca M.D. 56611 M93.261 [facility] M25.561 M17.31 Office Visit 08/11/2017 11:15a [facility] [place] [address] S83.511D C.[facility]. S83.241D M93.261 S83.511D Office Visit 07/28/2017 8:45a [facility] [place] [address] S83.511D C.M.A. S83.241D S83.511D Office Visit 02/11/2017 8:00a [facility] [place] [address] M25.461 C.M.A. S83.511D S83.241D Office Visit 11/16/2016 8:00a [facility] [place] [address] M25.461 C.M.A. S83.511A S83.241A S83.511D S83.241D Office Visit 10/14/2016 8:15a [facility] [place] [address] M25.461 C.M.A. M23.41 Office Visit 09/07/2016 1:15p [facility] [place] [address] M25.461 C.M.A. M23.41 M23.41 M25.461 Office Visit 08/20/2016 9:45a [facility] [place] [address] M25.461 C.M.A. S83.511A S83.511D S83.511D S83.241A M23.41 Office Visit 08/06/2016 9:15a [facility] [place] [address] M25.461 C.M.A. M25.461 M25.461 M25.461 Office Visit 10/14/2011 3:15p [facility] Leonel Mast M.D. 19571 724.2 AT [facility] Future Appointment(s):02/10/2018 3:00 pm - Ruby Salamanca M.D. at [facility]02/27/2018 8:00 am - Ruby Salamanca M.D. at [facility]01/27/2018 - Ruby Salamanca M.D.M25.561 Pain in right kneeNew Medication:Percocet 5-325 mgNew Xrays:Knee 3 Views RTFollow up:Follow up: 4 pxarfS16.461 Effusion, right kneeZ47.1 Aftercare following joint replacement dlhjtyyJ56.651 Presence of right artificial knee joint
[2018-02-12] MEDS ORDERED: Iohexol 350* (CONTRAST) 500 ML MDV IV ONE (16:51)
--- NOTE | 2018-02-12 17:27 | RAD ---
INDICATION: Chest pain. Short of breath. Evaluate for pulmonary embolus. Short of breath COMPARISON: Chest x-ray same date TECHNIQUE: Axial source images were obtained from the thoracic inlet to the hemidiaphragms following administration of [address] angiographic technique was utilized. Coronal and sagittal reconstructed images were acquired. CHEST FINDINGS: Neck/thyroid: The visualized neck to include the thyroid appear normal. Chest wall: There are no acute abnormalities of the bony thorax or chest wall. There is no supraclavicular, infraclavicular, or axillary lymphadenopathy. Lungs : There are no pulmonary parenchymal masses or infiltrates. The pulmonary interstitium appears normal. There are no endobronchial lesions. Cardiomediastinal structures: There is no CT evidence of acute pulmonary embolic disease. The heart is normal in size. There is no pericardial effusion. There is no evidence of aortic aneurysm or dissection. There is mild annuloaortic ectasia. There are coronary artery calcifications The aortic root measures 4.0 cm There is no mediastinal or hilar adenopathy. The esophagus appears normal. Pleura : There are no pleural-based masses or effusions. Other: None. IMPRESSION: NO CT EVIDENCE OF ACUTE PULMONARY EMBOLIC DISEASE. LUNGS CLEAR
--- NOTE | 2018-02-12 18:04 | RAD ---
INDICATION: Pain and swelling. COMPARISON: CTA chest same date TECHNIQUE: Duplex interrogation of the Lowerextremity was performed. FINDINGS: Deep veins: The common femoral, great saphenous, profunda femoris, proximal, mid, and distal deep femoral, popliteal and posterior tibial are patent. The peroneal veins are identified which may be related to technical factors.. There is normal compressibility, augmentation, and phasic flow. Superficial veins: There are no findings of superficial thrombophlebitis. Popliteal fossa:There is no evidence of a popliteal cyst. Soft tissues:There are no soft tissue abnormalities. IMPRESSION: MILDLY LIMITED EVALUATION THE CALF VEINS AT THE PERONEAL VEINS ARE NOT SEEN. NO EVIDENCE OF DEEP VENOUS THROMBOSIS.
[2018-02-12] MEDS: Morphine VIAL* 4 MG/ML VIAL (1 ml vial) IV PRN (18:07)
[2018-02-12] MEDS ORDERED: Atorvastatin* 80 MG TAB PO ONE (18:18)
[2018-02-12] MEDS ORDERED: Al Hydrox/Mg Hydrox/Simet LIQ* 30 ML UDC PO ONE (18:20)
--- NOTE | 2018-02-12 18:55 | ED ---
Gali Brian Julia, scribed for Gurvinder Infante MD on 02/12/18 at 1553 . HPI Chest Pain - HPI Summary HPI Summary: This patient is a 62 year old M presenting to [facility] with a chief complaint of intermittent mid-sternal chest pain for the past few days worsening today with SOB. Chest pain typically lasting a few minute before resolving spontaneously; two or three episodes a day. Symptoms worse today at 12:30 with prolonged mid- sternal chest pain newly described as someone sitting on my chest with new diaphoresis. Chest pain is 9/10 at its worse. Pain aggravated by exertion. Denies abdominal pain and calf pain. Chronic knee pain is unchanged. PMHx of HTN. - History of Current Complaint Chief Complaint: EDChestPainROMI Time Seen by Provider: 02/12/18 15:49 Hx Obtained From: Patient Onset/Duration: Started Hours Ago Time of Onset: 12:30 Timing: Intermittent, Lasting Days Pain Intensity: 9 Pain Scale Used: 0-10 Numeric Chest Pain Location: Mid Sternal Character: Heaviness Aggravating Factor(s): Exertion Associated Signs and Symptoms: Positive: Shortness of Breath, Diaphoresis. Negative: Abdominal Pain, Calf Pain/Swelling - Additional Pertinent History Primary Care Physician: KWAN - Allergy/Home Medications Allergies/Adverse Reactions: Allergies Allergy/AdvReac Type Severity Reaction Status Date / Time No Known Allergies Allergy Verified 09/29/17 08:40 Home Medications: Home Medications Pregabalin [Lyrica] 50 mg PO TID 02/12/18 [History Confirmed 02/12/18] oxyCODONE/Acetamin 5/325 MG* [Percocet 5/325 TAB*] 2 tab PO Q8H PRN MDD 10 02/12 [History Confirmed 02/12/18] PMH/Surg Hx/FS Hx/Imm Hx Endocrine/Hematology History: Denies: Hx Diabetes Cardiovascular History: Reports: Hx Hypertension Denies: Hx Pacemaker/ICD, Other Cardiovascular Problems/Disorders Respiratory History: Denies: Hx Asthma, Other Respiratory Problems/Disorders GI History: Reports: Hx Gastroesophageal Reflux Disease - occassionally takes OTC tums when needed Denies: Other GI Disorders Musculoskeletal History: Reports: Hx Arthritis - knees Denies: Other Musculoskeletal History Sensory History: Reports: Hx Contacts or Glasses - reading Denies: Hx Cataracts, Hx Hearing Aid Opthamlomology History: Reports: Hx Contacts or Glasses - reading Denies: Hx Cataracts Neurological History: Denies: Other Neuro Impairments/Disorders Psychiatric History: Denies: Hx Panic Disorder - Cancer History Hx Chemotherapy: No - Surgical History Surgery Procedure, Year, and Place: RT KNEE SCOPE 04/18/2016; APPENDECTOMY 1985. tonsillectomy 196 Hx Anesthesia Reactions: No Infectious Disease History: No Infectious Disease History: Denies: Traveled Outside the [place] in Last 30 Days - Family History Known Family History: Positive: Hypertension - Social History Alcohol Use: Rare Alcohol Amount: 12 per wek Substance Use Type: Reports: None Hx Tobacco Use: Yes Smoking Status (MU): Former Smoker Amount Used/How Often: pack a day for 30 yrs Have You Smoked in the Last Year: No Review of Systems Positive: Chest Pain Negative: Abdominal Pain Positive: Myalgia - R knee pain at baseline, no calf pain . Negative: Edema All Other Systems Reviewed And Are Negative: Yes Physical Exam - Summary Physical Exam Summary: General: well-appearing, no pain distress Skin: warm, color reflects adequate perfusion, dry Head: normal Eyes: EOMI, JEET ENT: normal Neck: supple, nontender Respiratory: CTA, breath sounds present Cardiovascular: RRR Abdomen: soft, nontender Bowel: present Musculoskeletal: strength/ROM intact, right knee larger than left, no erythema, no tenderness to palpation Neurological: sensory/motor intact, A&O x3 Psychological: affect/mood appropriate Triage Information Reviewed: Yes Vital Signs On Initial Exam: Initial Vitals Temp Pulse Resp BP Pulse Ox 98.2 F 80 18 121/86 96 02/12/18 15:11 02/12/18 15:11 02/12/18 15:11 02/12/18 15:11 02/12/18 15:11 Vital Signs Reviewed: Yes Diagnostics - Vital Signs Vital Signs Temp Pulse Resp BP Pulse Ox 02/12/18 15:46 71 23 97 02/12/18 15:44 22 136/78 02/12/18 15:11 98.2 F 80 18 121/86 96 - Laboratory Lab Results: Lab Results 02/12/18 02/12/18 02/12/18 Range/Units 16:14 16:14 16:14 WBC 6.8 (3.5-10.8) 10^3/ul RBC 4.86 (4.00-5.40) 10^6/ul Hgb 15.4 (14.0-18.0) g/dl Hct 44 (42-52) % MCV 91 (80-94) fL MCH 32 H (27-31) pg MCHC 35 (31-36) g/dl RDW 16 H (10.5-15) % Plt Count 279 (150-450) 10^3/ul MPV 8.0 (7.4-10.4) um3 Neut % (Auto) 42.6 (38-83) % Lymph % (Auto) 43.7 (25-47) % Sauk % (Auto) 12.0 H (0-7) % Eos % (Auto) 1.5 (0-6) % Baso % (Auto) 0.2 (0-2) % Absolute Neuts (auto) 2.9 (1.5-7.7) 10^3/ul Absolute Lymphs (auto) 3.0 (1.0-4.8) 10^3/ul Absolute Monos (auto) 0.8 (0-0.8) 10^3/ul Absolute Eos (auto) 0.1 (0-0.6) 10^3/ul Absolute Basos (auto) 0 (0-0.2) 10^3/ul Absolute Nucleated RBC 0 10^3/ul Nucleated RBC % 0 INR (Anticoag Therapy) (0.77-1.02) APTT (26.0-36.3) seconds D-Dimer, Quantitative (Less Than 230) ng/mL Sodium 135 (135-145) mmol/L Potassium 4.1 (3.5-5.0) mmol/L Chloride 101 (101-111) mmol/L Carbon Dioxide 24 (22-32) mmol/L Anion Gap 10 (2-11) mmol/L BUN 12 (6-24) mg/dL Creatinine 0.80 (0.67-1.17) mg/dL Est GFR ( Amer) 118.9 (>60) Est GFR (Non-Af Amer) 98.3 (>60) BUN/Creatinine Ratio 15.0 (8-20) Glucose 91 (70-100) mg/dL Lactic Acid 0.9 (0.5-2.0) mmol/L Calcium 9.9 (8.6-10.3) mg/dL Magnesium 2.2 (1.9-2.7) mg/dL Total Bilirubin 0.40 (0.2-1.0) mg/dL AST 17 (13-39) U/L ALT 17 (7-52) U/L Alkaline Phosphatase 102 (34-104) U/L Total Creatine Kinase 47 (10-223) U/L CK-MB (CK-2) 1.6 (0.6-6.3) ng/mL Troponin I 0.04 H* (<0.04) ng/mL C-Reactive Protein 9.38 H (<8.01) mg/L B-Natriuretic Peptide ( - 100) pg/mL Total Protein 7.7 (6.4-8.9) g/dL Albumin 4.2 (3.2-5.2) g/dL Globulin 3.5 (2-4) g/dL Albumin/Globulin Ratio 1.2 (1-3) Lipase 17 (11.0-82.0) U/L TSH 1.01 (0.34-5.60) mcIU/mL 02/12/18 02/12/18 Range/Units 16:15 16:15 WBC (3.5-10.8) 10^3/ul RBC (4.00-5.40) 10^6/ul Hgb (14.0-18.0) g/dl Hct (42-52) % MCV (80-94) fL MCH (27-31) pg MCHC (31-36) g/dl RDW (10.5-15) % Plt Count (150-450) 10^3/ul MPV (7.4-10.4) um3 Neut % (Auto) (38-83) % Lymph % (Auto) (25-47) % Sauk % (Auto) (0-7) % Eos % (Auto) (0-6) % Baso % (Auto) (0-2) % Absolute Neuts (auto) (1.5-7.7) 10^3/ul Absolute Lymphs (auto) (1.0-4.8) 10^3/ul Absolute Monos (auto) (0-0.8) 10^3/ul Absolute Eos (auto) (0-0.6) 10^3/ul Absolute Basos (auto) (0-0.2) 10^3/ul Absolute Nucleated RBC 10^3/ul Nucleated RBC % INR (Anticoag Therapy) 0.92 (0.77-1.02) APTT 32.6 (26.0-36.3) seconds D-Dimer, Quantitative 452 H (Less Than 230) ng/mL Sodium (135-145) mmol/L Potassium (3.5-5.0) mmol/L Chloride (101-111) mmol/L Carbon Dioxide (22-32) mmol/L Anion Gap (2-11) mmol/L BUN (6-24) mg/dL Creatinine (0.67-1.17) mg/dL Est GFR ( Amer) (>60) Est GFR (Non-Af Amer) (>60) BUN/Creatinine Ratio (8-20) Glucose (70-100) mg/dL Lactic Acid (0.5-2.0) mmol/L Calcium (8.6-10.3) mg/dL Magnesium (1.9-2.7) mg/dL Total Bilirubin (0.2-1.0) mg/dL AST (13-39) U/L ALT (7-52) U/L Alkaline Phosphatase (34-104) U/L Total Creatine Kinase (10-223) U/L CK-MB (CK-2) (0.6-6.3) ng/mL Troponin I (<0.04) ng/mL C-Reactive Protein (<8.01) mg/L B-Natriuretic Peptide 15 ( - 100) pg/mL Total Protein (6.4-8.9) g/dL Albumin (3.2-5.2) g/dL Globulin (2-4) g/dL Albumin/Globulin Ratio (1-3) Lipase (11.0-82.0) U/L TSH (0.34-5.60) mcIU/mL Result Diagrams: 02/12/18 16:14 02/12/18 16:14 Lab Statement: Any lab studies that have been ordered have been reviewed, and results considered in the medical decision making process. - Radiology CXR Radiology Interpretation Completed By: Radiologist - NO ACTIVE DISEASE. ED Physician has reviewed this report. - CT Chest/Thorax CT Interpretation Completed By: Radiologist - NO CT EVIDENCE OF ACUTE PULMONARY EMBOLIC DISEASE. LUNGS CLEAR. ED Physician has reviewed this report. - EKG 1511 Cardiac Rate: NL - 73 BPM EKG Rhythm: Sinus Rhythm ST Segment: Normal Ectopy: None 1802 Cardiac Rate: NL - 70 BPM EKG Rhythm: Sinus Rhythm ST Segment: Normal Ectopy: None - Additional Comments Diagnostic Additional Comments: Venous Doppler US reveals, as per radiologist: MILDLY LIMITED EVALUATION THE CALF VEINS AT THE PERONEAL VEINS ARE NOT SEEN. NO EVIDENCE OF DEEP VENOUS THROMBOSIS. ED Physician has reviewed this report. Chest Pain Course/Dx - Course Course Of Treatment: ADMIT HOSPITALIST. - Diagnoses Provider Diagnoses: Chest pain - Provider Notifications Discussed Care Of Patient With: Ronnie Mooney - hospitalist Time Discussed With Above Provider: 17:35 Instructed by Provider To: Admit As Inpatient Discharge - Sign-Out/Discharge Documenting (check all that apply): Discharge/Admit/Transfer - admit - Discharge Plan Condition: Stable Disposition: ADMITTED TO [facility] - Billing Disposition and Condition Condition: STABLE Disposition: Admitted to [facility] The documentation as recorded by the Gali siddiqui Julia accurately reflects the service I personally performed and the decisions made by me, Gurvinder Infante MD.
--- NOTE | 2018-02-12 20:46 | HP ---
CC: Dr. Viridiana Carpio * [facility] MEDIC[facility] HISTORY AND PHYSICAL: DATE OF ADMISSION: 02/12/18 PRIMARY CARE PHYSICIAN: Dr. Viridiana Carpio. ATTENDING PHYSICIAN: Dr. Dercik Mooney * (dictation provided by Veda Cee NP). CHIEF COMPLAINT: Chest pain. HISTORY OF PRESENT ILLNESS: Mr. Sunshine is a 62-year-old male with a past medical history of hypertension, GERD, and a right total knee replacement about 5 months ago with persistent right knee pain, who presented to the hospital with concern for chest pain. Mr. Sunshine states that he has had ongoing knee pain on the right side since he had surgery [address] Salaamnca. He has been following with her routinely to try to assess the cause of the pain and continues with physical therapy. About 4 days ago, he began having chest pain. He describes chest pain that seems to happen more frequently with activity, although his activity is very limited. He notes 1 to 2 episodes a day up until today. The episodes before seemed to resolve with resting. This morning, he had an episode that was described as chest pressure, 4-5/10 in intensity and lasting for quite some time. He lied down on the bed and got up a little bit later and again the chest pain returned. He went outside to feed the birds, but the chest pain was so intense that he felt he needed to come to the emergency room for evaluation. He denies any shortness of breath, diaphoresis, nausea, or radiation of the pain. He does report having a long-term history of heartburn and feels that perhaps his symptoms of acid reflux have been more intense recently. He has continued on Pepcid per routine. He denies any activity that could have caused a musculoskeletal injury. In the emergency room, Mr. Sunshine had labs including a troponin which was 0.04. His BNP is 15. His ddimer was 452. The remainder of the labs is unremarkable. Chest x-ray is unremarkable. He went on for a chest thorax CTA and a venous Doppler study that showed no acute abnormalities. Mr. Sunshine had a repeat episode of very intense chest pain after being transported via bed for ultrasound of his lower extremities, rated at 8/10, and EKG obtained during that time showed no evidence of ischemia. Second troponin is pending. PAST MEDICAL HISTORY: 1. Hypertension. 2. GERD. 3. Status post right total knee arthroplasty with persistent pain. MEDICATIONS: 1. Famotidine 20 mg p.o. b.i.d. 2. Lisinopril 20 mg p.o. q.a.m. 3. Oxycodone with acetaminophen 5/325 tabs, 2 tabs p.o. q.8 hours. 4. Pregabalin 50 mg p.o. t.i.d. ALLERGIES: No known drug allergies. FAMILY HISTORY: The patient's grandmother had lung cancer and father had skin cancer. SOCIAL HISTORY: The patient is a former smoker. He quit about 2 years ago. He continues to drink about 4 beers per day and denies ever having any symptoms of alcohol withdrawal. Denies drug use. Lives with his , who is the healthcare proxy. REVIEW OF SYSTEMS: A 14-point review of systems was completed with Mr. Sunshine and all those not mentioned above were negative. PHYSICAL EXAMINATION GENERAL: Mr. Sunshine is lying in the bed. On initial point of contact with him, he was having 8/10 chest pain. He was given morphine and oxygen with good improvement and relief. He states he is much more comfortable now. VITAL SIGNS: Temperature 98.2, pulse rate 74, respiratory rate 20, O2 saturation 100% on room air, blood pressure 156/103. LUNGS: Clear to auscultation bilaterally with no accessory muscle use and good aeration. HEART: S1, S2. No murmurs, rubs, or gallops, and regular. I note that patient has pain with palpation across the left and right chest at the site of his described chest pain. ABDOMEN: Soft, nontender with bowel sounds positive x4. EXTREMITIES: No cyanosis or edema. NEUROLOGIC: He is alert, he is oriented x3. Moves all extremities equally. There is no facial asymmetry or focal weakness. Extraocular movements are intact. SKIN: Intact. DIAGNOSTIC STUDIES/LAB DATA: WBC 6.8, hemoglobin 15.4, hematocrit 44, platelet count 279. INR 0.92. Sodium 135, potassium 4.1, chloride 101, serum bicarbonate 24, BUN 12, creatinine 0.80, glucose 91, lactic acid 0.9. Troponin 0.04. CRP 9.38. BNP 15. EKG shows sinus rhythm with no evidence of significant ischemia and the heart rate is 70s. Repeat EKG done during 8/10 chest pain again shows no acute ischemic changes. Chest x-ray shows no active disease. The chest thorax CT shows no evidence of pulmonary embolism or other abnormality. The bilateral lower extremity ultrasound shows mildly limited evaluation of the calf veins, the peroneal veins are not seen. No evidence of DVT. IMPRESSION AND PLAN: Mr. Sunshine is a 62-year-old male with a past medical history of hypertension, who presents today to the hospital with concern for chest pain. Our plans are for observation in the hospital for the followin. Chest pain: The patient has had a repeat episode of chest pain here in the ED today that was quite severe while lying in bed for an ultrasound. His repeat EKG showed no evidence of ischemia and a repeat troponin is pending. He is now chest pain free after a dose of morphine. He has had aspirin and atorvastatin. Given that his EKG is without evidence of significant ischemia and his troponin is only 0.04 after several hours to days of chest pain, I am not planning to start heparin drip at this point. If his troponin does elevate on his next check, we can reconsider that. It is possible that his symptoms are related to heartburn. He does have a history of such. I have given him Mylanta x1 while we are awaiting the second troponin. He also has pain with palpation which would suggest a musculoskeletal source of his pain though he has no inciting injury. 2. Hypertension. Continue lisinopril. 3. Code status is full code. 4. Chronic pain to right knee. Continue pregabalin and oxycodone. TIME SPENT: Approximately 60 minutes was spent on admission of this patient, more than half the time spent with the patient at the bedside reviewing the events leading up to this hospitalization, performing the physical examination, and reviewing my plan of care. VEDA CEE NP [id number]/BRYANT #: [id number] HIEU
[2018-02-12] MEDS: Famotidine TAB* 20 MG PO SCH (21:04)
[2018-02-12] MEDS: Pregabalin CAP(*) 50 MG PO SCH (21:04)
[2018-02-12] MEDS: Heparin VIAL(*) 5000 UNITS/ML VIAL (FIVE THOUSAND) SUBCUT SCH (21:05)
[2018-02-13] MEDS: Heparin VIAL(*) 5000 UNITS/ML VIAL (FIVE THOUSAND) SUBCUT SCH ×3 (05:14→21:11)
[2018-02-13] MEDS: Morphine VIAL* 4 MG/ML VIAL (1 ml vial) IV PRN ×5 (07:37→23:01)
[2018-02-13] MEDS: oxyCODONE/Acetamin 5/325 MG* TAB PO PRN ×2 (07:37→17:50)
[2018-02-13] MEDS: Pregabalin CAP(*) 50 MG PO SCH ×3 (07:43→21:10)
[2018-02-13] MEDS: Famotidine TAB* 20 MG PO SCH ×2 (07:43→21:09)
--- NOTE | 2018-02-13 08:13 | PN ---
Subjective Date of Service: 02/13/18 Interval History: Patient seen and examined at bedside. Denies fever, chills, shortness of breath , chest discomfort (at this time), N/V/D. Pt states that he had an episode of chest pain this AM while at rest, but not long after getting back from the bathroom, this episode had some associated shortness of breath with it. He has been under a lot of stress recently after his knee replacement. Tele: Sinus rhythm, rate 60-80's. Family History: Unchanged from Admission Social History: Unchanged from Admission Past Medical History: Unchanged from Admission Objective Active Medications: Aspirin (Aspirin 81 Mg Chew Tab*) 81 mg PO DAILY PAULO Famotidine (Pepcid Tab*) 20 mg PO BID PAULO Heparin Sodium (Porcine) (Heparin Vial(*)) 5,000 units SUBCUT Q8HR PAULO Lisinopril (Prinivil Tab*) 20 mg PO QAM PAULO Morphine Sulfate (Morphine Vial*) 4 mg IV Q2H PRN Reason: chest pain Oxycodone/Acetaminophen (Percocet 5/325 Tab*) 2 tab PO Q8H PRN Reason: PAIN Pregabalin (Lyrica Cap(*)) 50 mg PO TID [facility] Vital Signs - 8 hr 02/13/18 02/13/18 02/13/18 00:10 00:12 00:20 Temperature 97.9 F Pulse Rate 78 77 Respiratory 16 Rate Blood Pressure 100/60 (mmHg) O2 Sat by Pulse 92 91 Oximetry 02/13/18 02/13/18 02/13/18 00:57 02:10 03:36 Temperature 99.1 F Pulse Rate 71 Respiratory 18 14 Rate Blood Pressure 109/73 (mmHg) O2 Sat by Pulse 91 94 Oximetry 02/13/18 02/13/18 07:37 07:43 Temperature Pulse Rate Respiratory 22 22 Rate Blood Pressure (mmHg) O2 Sat by Pulse Oximetry Oxygen Devices in Use Now: None Appearance: NAD, sitting up in bed Ears/Nose/Mouth/Throat: Mucous Membranes Moist Respiratory: Symmetrical Chest Expansion and Respiratory Effort, Clear to Auscultation Cardiovascular: NL Sounds; No Murmurs; No JVD, RRR Abdominal: NL Sounds; No Tenderness; No Distention Extremities: No Edema Skin: No Rash or Ulcers Neurological: Alert and Oriented x 3, NL Muscle Strength and Tone Lines/Tubes/Other Access: Clean, Dry and Intact Peripheral IV - site benign Nutrition: Taking PO's Result Diagrams: 02/12/18 16:14 02/12/18 16:14 Additional Lab and Data: . Assess/Plan/Problems-Billing Assessment: Mr. Sunshine is a 62 yo male with PMH significant for HTN and GERD who presented to the emergency room with complaints of chest pain. - Patient Problems (1) Chest pain Code(s): R07.9 - CHEST PAIN, UNSPECIFIED SNOMED Code(s): 79684902 Comment: - Episode of CP this AM after returning from the bathroom - Troponin 0.04, 0.06, 0.10, 0.11 - Nonspecific ST depression on EKG - Repeat EKG this AM shows diffuse ST changes and TWI - Cardiology consult, pending (2) HTN (hypertension) Code(s): I10 - ESSENTIAL (PRIMARY) HYPERTENSION SNOMED Code(s): 42689727 Comment: - SBP 100-140's - Continue lisinopril (3) Chronic pain Code(s): G89.29 - OTHER CHRONIC PAIN SNOMED Code(s): 60182443 Comment: - Right knee s/p TKR - Continue pregabalin and oxycodone (4) DVT prophylaxis Code(s): BSU0915 - SNOMED Code(s): 033650632 (5) Full code status Code(s): Z78.9 - OTHER SPECIFIED HEALTH STATUS SNOMED Code(s): 677508964 Status and Disposition: OBV. Discharge to home when medically stable.
[2018-02-13] MEDS ORDERED: Lisinopril TAB* 10 MG PO SCH (09:00)
[2018-02-13] MEDS ORDERED: Aspirin 81 mg CHEW TAB* 81 MG TAB.CHEW PO SCH (09:00)
[2018-02-13] MEDS ORDERED: Regadenoson* 0.4 MG/5 ML SYRINGE ONE (09:40)
[2018-02-13] MEDS ORDERED: NS 0.9% 1000 ML* 1,000 ML IV SCH (11:45)
[2018-02-13] MEDS ORDERED: fentaNYL* 50 MCG/ML 2 ML VIAL (100 MCG VIAL) ONE (12:26)
[2018-02-13] MEDS ORDERED: Heparin(*) 1000 UNIT/ML 10 ML VIAL CATH LAB IV ONE (12:26)
[2018-02-13] MEDS ORDERED: VERAPAMIL 2.5 MG/ML 2 ML VIAL ** 5 mg/2 ml ONE (12:26)
[2018-02-13] MEDS ORDERED: Heparin 2 UNITS/ML IVPREMIX* 2,000 ML IV ONE (12:27)
[2018-02-13] MEDS ORDERED: Midazolam* 1 MG/ML 10 ML VIAL (10 MG) ONE (12:27)
[2018-02-13] MEDS ORDERED: Iohexol 350 (CONTRAST) 200 ML MDV IV ONE (12:27)
[2018-02-13] MEDS ORDERED: nitroGLYCERIN DRIP* 25,000 MCG/250 ML BTL ONE (12:27)
[2018-02-13] MEDS ORDERED: Lidocaine 1% INJ* 10 MG/ML 30 ML SDV ONE (12:27)
--- NOTE | 2018-02-13 12:36 | ECHO ---
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 Technical Comments: The study quality is fair. The study is technically limited due to poor parasternal windows. Completed at 1230. Left Ventricle: The left ventricular chamber size is decreased. Moderate concentric left ventricular hypertrophy is observed. Global left ventricular wall motion and contractility are within normal limits. There is normal left ventricular systolic function. The estimated ejection fraction is 55-60%. Normal left ventricular diastolic filling is observed. Left Atrium: The left atrium is mildly dilated. Right Ventricle: Moderator Band present. The right ventricle is mildly dilated. The right ventricle wall thickness is mildly increased. The right ventricular global systolic function is normal. Right Atrium: The right atrium is mild to moderately dilated. Aortic Valve: The aortic valve is trileaflet. The aortic valve leaflets are mildly thickened. There is a trace of aortic regurgitation. There is no evidence of aortic stenosis. Mitral Valve: The mitral valve leaflets are mildly thickened. There is mild to moderate mitral regurgitation. There is no evidence of mitral stenosis. Tricuspid Valve: The tricuspid valve leaflets are normal. There is mild to moderate tricuspid regurgitation. The right ventricular systolic pressure is estimated at 42 mmHg. There is evidence of mild pulmonary hypertension. There is no tricuspid stenosis. Pulmonic Valve: The pulmonic valve appears normal. There is mild pulmonic regurgitation. There is no pulmonic stenosis. Pericardium: There is no significant pericardial effusion. A pericardial fat pad is visualized. Aorta: There is mild dilatation of the ascending aorta. There is no dilatation of the aortic arch. The aortic root is normal in size. Pulmonary Artery: The main pulmonary artery appears normal. Venous: The inferior vena cava is dilated. There is an approximate 50% respiratory change in the inferior vena cava dimension. Summary: There was not any prior study for comparison. Conclusions Global left ventricular wall motion and contractility are within normal limits. There is normal left ventricular systolic function. The estimated ejection fraction is 55-60%. Moderate concentric left ventricular hypertrophy is observed. The right ventricular global systolic function is normal. There is no evidence of aortic stenosis. There is mild to moderate mitral regurgitation. There is mild to moderate tricuspid regurgitation. There is evidence of mild pulmonary hypertension. There is no significant pericardial effusion. Measurements Name Value Normal Range RVIDd (AP) 2D 4.2 cm (0.9 - 2.6) RVDdMajor (2D) 4.8 cm (2.2 - 4.4) RVAW (2D) 0.7 cm (0.2 - 0.5) RAd ISD 4CH 5.6 cm (3.4 - 4.9) RA (A4C)W 4.5 cm (2.9 - 4.6) IVSd (2D) 1.5 cm (0.6 - 1) LVPWd (2D) 1.5 cm (0.6 - 1) LVIDd (2D) 3.4 cm (3.6 - 5.4) LVIDs (2D) 2 cm - LV FS (2D) 41 % (25 - 45) Aortic Annulus 2.3 cm (1.4 - 2.6) Ao root diameter (2D) 3.2 cm (2.1 - 3.5) Ascending Ao 3.7 cm (2.1 - 3.4) Aortic arch 2.6 cm (1.8 - 3.4) LA dimension (AP) 2D 3.8 cm (2.3 - 3.8) LAd ISD 4CH 4.6 cm (2.9 - 5.3) LA ISD 4CH W 4.6 cm (2.5 - 4.5) Name Value Normal Range LA ESV SP 4CH (A/L) 59 ml - LA ESV SP 2CH (A/L) 48 ml - LA ESV BP (A/L) 61 ml - LA ESV BP (A/L) index 30 ml/m2 - LA ESV SP 4CH (MOD) 45 ml - LA ESV SP 2CH (MOD) 46 ml - Name Value Normal Range MV E-wave Vmax 0.6 m/sec - MV deceleration time 240.2 msec - MV A-wave Vmax 0.42 m/sec - MV E:A ratio 1.41 ratio - LV septal e' Vmax 0.08 m/sec - LV lateral e' Vmax 0.1 m/sec - LV E:e' septal ratio 7.5 ratio - LV E:e' lateral ratio 6 ratio - Name Value Normal Range AV Vmax 1.2 m/sec - AV VTI 21.72 cm - AV peak gradient 5.17 mmHg - AV mean gradient 2.39 mmHg - LVOT Vmax 1.09 m/sec - LVOT VTI 20.43 cm - LVOT peak gradient 4.78 mmHg - LVOT mean gradient 1.98 mmHg - RENÉ Vmax 1.02 m/sec - Name Value Normal Range TR Vmax 2.6 m/sec - TR peak gradient 27 mmHg - RAP 15 mmHg - RVSP 42 mmHg - IVC diameter 2.4 cm - Name Value Normal Range PV Vmax 0.61 m/sec - PV peak gradient 1.49 mmHg - NH end-diastolic Vmax 1.09 m/sec -
[2018-02-13] MEDS ORDERED: Diazepam TAB(*) 5 MG PO ONE (13:00)
[2018-02-13] MEDS ORDERED: diPHENhydraMINE PO* 25 MG PO ONE (13:00)
--- NOTE | 2018-02-13 16:29 | CONS ---
CC: Dr. Viridiana Carpio CARDIOLOGY CONSULTATION: DATE OF CONSULT: 02/13/18 INDICATION FOR CONSULTATION: Abnormal troponin, chest pain. HISTORY OF PRESENT ILLNESS: The patient is a 62-year-old gentleman with history of hypertension, art hritis, status post knee surgery who has been having crescendo angina for the past 3 to 4 days. The patient states that a couple of days ago he was out doing some light yard work and felt a pressure on his chest. He said it was fairly light, maybe a 3/10, but noticed that it was there, worked for ano ther 10 or 15 minutes and then rested. The discomfort finally went away. He had no chest pain the ext day. The next day after that he was doing minimal stuff around the house and he get a crushing c hest pain. He said it was 9/10. It was severe and lasted for approximately 1 hour and then slowly s tarted to mukund. At that time, he decided to come to the emergency room. On arrival to the emergenc y room, his EKG showed nonspecific ST-T wave abnormalities, but no ST segment elevation or depression . His initial troponin level was 0.04. He did have an elevated d-dimer level at 452. The patient d id have a CTA of his chest done yesterday at 5 o'clock. There is no evidence of pulmonary embolism. His lungs were clear. Overnight the patient had no further chest pain. However, he did have evolvin g EKG changes. This morning his EKG showed ST segment depression in the anterior and lateral leads co mpared to the one at the time of admission and then later on today his EKG showed clear T-wave invers ions in V4 through V6. Initial troponin level was 0.04, it peaked at 0.11 and then came down to 0.09 . Again, the patient is currently pain free. He did have an echocardiogram, which showed normal LV size with systolic function. No evidence of focal wall motion abnormalities. PAST MEDICAL HISTORY: Significant for: 1. Hypertension. 2. Gastroesophageal reflux disease. 3. Arthritis. PAST SURGICAL HISTORY: He is status post total knee replacement in September. OUTPATIENT MEDICATIONS: 1. Famotidine 20 mg b.i.d. 2. Lisinopril 20 mg q. a.m. 3. Oxycodone as needed. 4. Gabapentin 50 mg t.i.d. ALLERGIES: No known drug allergies. SOCIAL HISTORY: He is a previous smoker. He quit 2 years ago. He has 4 to 5 beers a day. He denie s other drug use. He lives with his . REVIEW OF SYSTEMS: Negative for fever or chills. Negative for changes in bowel or bladder habits. Negative for changes in weight. All other 12-point review is unremarkable. PHYSICAL EXAM: Vital Signs: Height is 5 feet 10 inches, weight is 184 pounds. Temperature 97.5, hea rt rate is 80, blood pressure 135/97, respiratory rate is 16, and oxygen saturation 99% on room air. HEENT: Sclerae anicteric. Oropharynx is pink without erythema. Neck: Carotids are 2+ without bru its. JVD is normal. Thyroid is normal. Cardiac: S1 and S2 without any murmurs, rubs, or gallops. L ungs: Clear to auscultation bilaterally. There is no dullness to percussion. Abdomen: Soft, nonten renea, and nondistended with normoactive bowel sounds. Extremities: Show mild edema in his right lower extremity and in his knee. He has 2+ pulses throughout. Neurologic: The patient is awake, alert, and oriented. He moves all 4 extremities equally. DIAGNOSTIC STUDIES/LAB DATA: Chemistries are within normal limits. BUN 12, creatinine 0.8. AST and ALT are normal. Troponins are as described above. Total of cholesterol 176, LDL cholesterol of 111 . TSH 1.01. CBC within normal limits. IMPRESSION: This is a 62-year-old gentleman with a history of hypertension who has been having cresc endo angina for the past couple of days which is fairly classic anginal type symptoms. The patient d oes have evolving EKG changes compared to yesterday, now has significant T-wave inversions in the ant erior leads. The patient's troponin level had chata and fallen in a predictable level. For now I think the patient has an acute coronary syndrome. The patient is currently pain free. He did take aspirin yesterday and today. RECOMMENDATIONS: The patient will undergo cardiac catheterizat ion. I think his suspicion for coronary artery disease is quite high and clearly has an unstable pat tern. The patient will continue on his current medications. Further recommendations pending results of his cardiac catheterization. [id number]/[facility] #: [id number]
--- NOTE | 2018-02-13 22:20 | TRS ---
CC: Dr. Viridiana Carpio; Dr. Thiago Gary; [facility] * TRANSFER SUMMARY/DISCHARGE SUMMARY: DATE OF ADMISSION: 02/12/18 DATE OF TRANSFER: 02/14/18 to [facility] ATTENDING PHYSICIAN: Dr. Jimenez Madrid * (dictated by Delia Fermin NP). PRIMARY CARE PROVIDER: Dr. Viridiana Carpio. PRIMARY DIAGNOSIS: Three-vessel coronary artery disease. SECONDARY DIAGNOSES: 1. Hypertension. 2. Gastroesophageal reflux disease. 3. Status post right total knee arthroplasty with persistent pain. CONSULTATIONS WHILE IN THE HOSPITAL: Dr. Thiago Gary with Cardiology. PROCEDURES WHILE IN THE HOSPITAL: Status post cardiac catheterization by Dr. Thiago Gary on 02/13/18 showing three-vessel coronary artery disease. STUDIES WHILE IN THE HOSPITAL: 1. Chest x-ray on 02/12/18. Radiologist's impression: No active disease. 2. Chest thoracic CTA on 02/12/18. Radiologist's impression: No CT evidence of acute pulmonary embolic disease. Lungs clear. 3. Right lower extremity venous Doppler study on 02/12/18. Radiologist's impression: Mildly limited evaluation of the calf veins, the peroneal veins are not seen. No evidence of deep vein thrombus. 4. Transthoracic echocardiogram on 02/13/18. [employer] Estimator's conclusion: Global left ventricular wall motion and contractility are within normal limits. There is normal left ventricular systolic function. The estimated ejection fraction is 55% to 60%. Moderate concentric left ventricular hypertrophy is observed. The right ventricular global systolic function is normal. There is no evidence of aortic stenosis. There is amnv-id-ixwqmenr mitral regurgitation , nesp-rc-jzfnndea tricuspid regurgitation. There is no evidence of mild pulmonic hypertension. There is no significant pericardial effusion. CURRENT HOSPITAL MEDICATIONS: 1. Aspirin 81 mg oral daily. 2. Pepcid 20 mg oral twice daily. 3. Heparin 5000 units subcutaneous every 8 hours. 4. Lisinopril 20 mg oral every morning. 5. Morphine sulfate 4 mg IV every 2 hours as needed for pain. 6. Percocet 5/325 two tablets oral every 8 hours as needed for pain. 7. Lyrica 50 mg oral 3 times daily. 8. Sodium chloride 100 mL an hour. Home medications: 1. Lyrica 50 mg oral 3 times daily. 2. Percocet 5/325 two tablets oral every 8 hours as needed for pain. 3. Lisinopril 20 mg oral every morning. 4. Famotidine 20 mg oral twice daily. HISTORY OF PRESENT ILLNESS/HOSPITAL COURSE: Mr. Sunshine is a 62-year-old male with past medical history significant for hypertension, GERD, status post right total knee arthroplasty approximately 5 months ago with persistent pain since then. The patient continues to follow with Dr. Salamanca, Orthopedic Surgery, and Physical Therapy to assist with his knee pain. Approximately 4 days ago, he began having chest pain. He described the pain as happening more frequently with activity, although his activity had been limited due to his knee pain. He had 1 or 2 episodes a day up until his day of presentation. The previous episodes were resolving with rest. On morning of his presentation, he had an episode he described as chest pressure lasting for quite some time. He lied down in bed and got up a bit later and again the chest pain returned. He went outside to feed the bird, but the chest pain was so intense that he felt the need to come to the emergency room for evaluation. The patient denied any associated shortness of breath, diaphoresis, nausea, or radiation of pain. He reports long-term indigestion and feels perhaps that his symptoms may have been acid reflux. The patient was continuing to take his routine Pepcid. He denied any musculoskeletal injury. While in the emergency room, the patient's initial troponin was 0.40, BNP 15, D - dimer 452. His other labs were unremarkable. He had a chest x-ray that was unremarkable. He had a CTA of his chest and a venous Doppler study showing no acute abnormalities. While in the emergency room, he had an episode of intense chest pain after being transported via bed to [facility]. He had an EKG showing no evidence of ischemia and the hospitalists were asked to evaluate the patient for admission. During his hospitalization, his troponins peaked at 0.11. He had fasting lipids that were within normal limits. Due to his elevated troponin, he had a repeat EKG this morning showing diffuse T-wave inversion that was new from overnight and continued ST depression that was diffuse. Due to this finding, he did not undergo a stress test and instead was seen in consultation by Dr. Thiago Gary. Dr. Gary felt that this likely represented acute coronary syndrome and the patient underwent a transthoracic echocardiogram without acute findings. It was felt as though the patient should proceed to cardiac catheterization. The patient underwent cardiac catheterization today on with Dr. Gary showing 3-vessel disease. Dr. Gary contacted Dr. Gabriele Alaniz at [facility], who accepted the patient for transfer for possible coronary artery bypass graft. Mr. Sunshine is currently stable for transfer to [facility] in the morning. Vital signs are as follows: Temperature 97.5, heart rate 89, respiratory rate 20 , O2 sat 99% on room air, blood pressure 123/75. TRANSFER PLAN: The patient will be transferred to [facility] under the care of Dr. Alaniz in the morning. He will evaluate the patient and determine what cardiac interventions he needs. For now, the patient will be continued on baby aspirin. I will not start heparin drip as the patient is currently stable. This is a summarized report of a complex medical history and hospital stay. For further details, please see the entire medical record. TIME SPENT: Time for this transfer was approximately 50 minutes; greater than half of that was spent with the patient and discussing transfer plans and instructions. CONDITION ON TRANSFER: Stable. DELIA WALLACE, WILLAM [id number]/[facility] #: [id number] HIEU
[2018-02-13] MEDS ORDERED: Heparin DRIP 25,000 UNITS(*) 25,000 UNITS/500 ML BAG IVPB SCH (22:30)
[2018-02-13] MEDS ORDERED: Heparin VIAL(*) 5000 UNITS/ML VIAL (FIVE THOUSAND) IV SCH (23:00)
[2018-02-14] MEDS: Morphine VIAL* 4 MG/ML VIAL (1 ml vial) IV PRN (03:59)
[2018-02-14 04:05] VITALS: BP 92/51
[2018-02-14] MEDS: oxyCODONE/Acetamin 5/325 MG* TAB PO PRN (05:22)
[2018-02-14 05:31] LABS: EGFR Non-African American 79.6 (>60)
--- NOTE | 2018-02-14 15:05 | CATH ---
CC: Dr. Yusuf; Dr. Deo Alaniz CARDIAC CATHETERIZATION: DATE: 02/13/18 PROCEDURE: Cardiac catheterization including coronary angiography. INDICATION: Acute coronary syndrome, abnormal EKG. HISTORY: The patient is a 62-year-old male with a history of hypertension, who is admitted to the [facility] with typical crescendo anginal-type symptoms. His initial EKG showed normal sinus rhythm, but subsequent EKGs showed an evolution to ST segment depression and then ST segment depression with T-w ave inversion. The patient's peaked troponin level was 0.11. Cardiac catheterization was recommende d. DESCRIPTION OF PROCEDURE: The patient was brought to the cardiac catheterization lab in a fasting st ate. Informed consent had been obtained prior to the procedure. All labs had been reviewed. The pat ient was placed supine on the procedure table. His right radial area was prepped and draped in the us ual fashion. 1% lidocaine was used for local anesthesia. The radial artery was entered by a Selding er technique and a guidewire was placed. Over the guidewire, a 6-Slovak hydrophilic sheath was place d. Through the sheath, a cocktail of heparin, verapamil, and nitroglycerin was infused. The patient underwent coronary angiography using a 6- Slovak TIG catheter and a 5-Slovak AR1 catheter. At the e nd of the procedure, all sheath and catheters were removed. The patient tolerated the procedure well with no complications. A total of 75 cc of Omnipaque dye was used. A total of 5.9 minutes of fluor o time was used. Initial blood pressure 132/48. CORONARY ARTERIES: 1. Left main artery. The left main was very short and quickly bifurcated into the LAD and circumfle x. There was no evidence of stenosis. 2. Left anterior descending artery. The LAD was normal in size. It gave off 2 small diagonal branc hes. The ostium of the LAD had an eccentric 90% stenosis that may have impinged on the ostium of the left circumflex artery. The remainder of the vessel was without significant disease. 3. Left circumflex artery. The circumflex artery was normal in size. It gave off 2 obtuse marginal branches. The first obtuse marginal had an eccentric 70% stenosis in the proximal portion. The sec ond diagonal vessel had a mid portion long 80% stenosis. There is appropriate anastomosis sites in b oth OM1 and OM2. 4. Right coronary. The RCA is a large dominant vessel. It gave off the PDA and a posterolateral br anch. The proximal portion of the right coronary artery had heavy calcification. There was a 50% st enosis in the mid portion of the LAD. There was a 60% stenosis in the distal portion of the RCA. Th e PDA and posterolateral branches were without disease. IMPRESSION: Three-vessel coronary artery disease as described above. RECOMMENDATION: The patient will undergo coronary bypass surgery. [id number]/[facility] #: [id number]
== END 2018-02-14 05:20 | disposition short-term general hospital (02) ==
LOC: ED 15:08 → MEDTELE 18:49
PROVIDERS: ADMIT Internal Medicine; ATTEND Internal Medicine
DX: I25.10 Atherosclerotic heart disease of native coronary artery without angina pectoris (principal); R07.89 Other chest pain; R06.02 Shortness of breath; I10 Essential (primary) hypertension; Z87.891 Personal history of nicotine dependence; K21.9 Gastro-esophageal reflux disease without esophagitis; Z96.651 Presence of right artificial knee joint; Z80.1 Family history of malignant neoplasm of trachea, bronchus and lung; Z79.82 Long term (current) use of aspirin; M25.561 Pain in right knee; G89.29 Other chronic pain
CPT/HCPCS: 36415; 71045; 71275; 80048; 80053; 80061; 82550; 82553; 83605; 83690; 83735; 83880; 84443; 84484; 85025; 85379; 85610; 85730; 86140; 93005; 93306; 93454; 99156; 99157; 99284; A9270-GY; G0378; J1644; J2250; J2270; J2785; J3010; Q9967